=== PATIENT | female | born 1990 | race Caucasian/White ===

== ENCOUNTER → 2020-03-14 15:25 | Outpatient (BNVA) | payer MEDICAID, SELFPAY | PROVIDERS: Family Provider Family Medicine; PCP Family Medicine; Visit Provider Nurse Practitioner Women's Health | DX: Z11.3 Encounter for screening for infections with a predominantly sexual mode of transmission (principal); Z12.4 Encounter for screening for malignant neoplasm of cervix | CPT/HCPCS: 86592; 86803; 87340; 87491; 87591; 87661; 87806; 88175 ==

== ENCOUNTER → 2020-03-30 09:17 | Outpatient (BNVA) | payer MEDICAID, SELFPAY | PROVIDERS: Family Provider Family Medicine; PCP Family Medicine; Visit Provider Nurse Practitioner Women's Health | DX: Z30.017 Encounter for initial prescription of implantable subdermal contraceptive (principal) | CPT/HCPCS: 81025 ==

== ENCOUNTER 2021-04-16 21:59 | Inpatient (IN) | payer MEDICAID, SELFPAY ==
--- NOTE | 2021-04-16 22:10 | XRR_ITS ---
PROCEDURE INFORMATION: Exam: XR Chest Exam date and time: 04/16/2021 10:10 PM Age: 30 years old Clinical indication: Cough and fever and shortness of breath; Additional info: Cough, covid concern TECHNIQUE: Imaging protocol: XR of the chest. Views: 1 view. COMPARISON: CR Chest 2 views* [id number] 07/10/2017 7:49 PM FINDINGS: Lungs: There may be some minimal focal infiltrate or atelectasis at the left lung base. Pleural spaces: Unremarkable. No pleural effusion. No pneumothorax. Heart/Mediastinum: Heart is within normal limits of size. Bones/joints: There is a small right cervical rib. Soft tissues: There is abnormal soft tissue density in the right apical region. Anterior right 1st and 2nd ribs not well seen on this study. Findings are worrisome for chest wall abnormality or mass. XR/XR chest 1V portable [id number] IMPRESSION: 1. Question of right chest wall abnormality. Further evaluation with CT scanning is suggested. 2. Question of minimal left basilar infiltrate. Radiation Dose CTDIVOL = (mGy): DLP = (mGy-cm)
[2021-04-16 22:15] VITALS: PULSE 190; RESP 20; TEMP 37.9; BMI 31.1
--- NOTE | 2021-04-16 22:15 | ECG_ITS ---
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 Measurements Intervals [place] Rate: 136 P: 67 MD: 147 QRS: 43 QRSD: 78 T: 57 QT: 296 QTc: 446 Interpretive Statements SINUS TACHYCARDIA MINIMAL ST DEPRESSION [0.025+ mV ST DEPRESSION] ABNORMAL RHYTHM ECG Compared to ECG 07/10/2017 19:03:17 ST (T wave) deviation now present Electronically Signed On 04-17-2021 20:40:24 DIRECTOR OF RETAIL MERCHANDISING by Camila Wood M.D. [id number]
[2021-04-16 22:19] VITALS: BP 110/78
--- NOTE | 2021-04-16 22:20 | W.ED.SOB ---
HPI - SOB/Dyspnea General: Chief Complaint: Chest Pain Stated Complaint: Covid Symptoms Time Seen by Provider: 04/16/21 22:11 Source: patient Mode of arrival: ambulatory Limitations: no limitations History of Present Illness: HPI Narrative: 30-year-old female states she has been having cough congestion fever over the last week. States that her son was diagnosed with Covid and she has had a negative Covid believe she likely has Covid. She has had some dyspnea oxygen here is 97% states she had palpitations tonight heart rate was in the 160s A. fib with RVR she has no history of any A. fib. Associated symptoms: Reports fever(s) and palpitations; Deny abdominal pain, nausea or vomiting Review of Systems Const: Reports: fever(s) and chills Eyes: Denies: blurry vision or eye discomfort ENMT: Denies: throat pain or dental pain Card: Reports: palpitations Resp: Reports: dyspnea and non-productive cough GI: Denies: abdominal pain, nausea, vomiting or diarrhea : Denies: dysuria Musc: Denies: neck pain or back pain Skin/Breast: Denies: rash Neuro: Denies: headache(s) Psych: Denies: depression [place]/Lymph: Denies: easy bruising All/Imm: Denies: urticaria PFSH ED PFSH: Medical History (Updated 04/16/21 @ 23:59 by Ashley Resendez MD) No pertinent past medical history neghx: htn,dm,thyroid,dvt/pe PCOS (polycystic ovarian syndrome) Surgical History H/O oral surgery History of cholecystectomy Hx of section (05/24/14) Perfomed per Dr. Perez Hx of dilation and curettage (~2012) Family History Grandfather Diabetes Paternal and maternal Heart disease Maternal Grandmother Diabetes Paternal Hypertension Maternal Denies family history of Colon cancer Ovarian cancer Clotting disorder Hypercholesteremia Breast cancer Bleeding disorder Uterine cancer Thyroid disease Stroke Physical Exam Const: COMMON NORMALS: no acute distress, patient oriented x3 and healthy appearing HENMT: COMMON NORMALS: normocephalic and atraumatic HEAD & SCALP: normocephalic and atraumatic Eye: COMMON NORMALS: Equal, round and reactive pupils present and EOMs intact bilaterally PUPIL: Yes Equal, round and reactive pupils present Neck/C-Spine: COMMON NORMALS: full ROM and supple Chest: COMMONS NORMALS: normal inspection of the chest and normal palpation of entire chest wall Resp: COMMON NORMALS: normal respiratory effort, No retractions, No use of accessory muscles and clear to auscultation bilaterally AUSCULTATION: clear to auscultation bilaterally Cardio: COMMON NORMALS: No murmurs present (Cardio) RATE: tachycardic RHYTHM: abnormal rhythm irregularly irregular GI: COMMON NORMALS: Normal to inspection, nondistended, normoactive bowel sounds present, Soft to palpation, non-tender and no masses PALPATION: Yes Soft to palpation Extremity: COMMON NORMALS: normal to inspection and full ROM Neuro: COMMON NORMALS: patient oriented x3, moves all extremities and no focal motor deficits Psych: COMMON NORMALS: mental status grossly normal, Normal thought process present and cooperative THOUGHT PROCESS: Normal thought process present Skin: COMMON NORMALS: no rashes or lesions noted and no wounds GENERAL SKIN EXAM: no rashes or lesions noted Course Vital Signs: Vital signs: Vital Signs Temperature 100.2 F H 04/16/21 22:15 Pulse Rate 166 H 04/16/21 22:26 Respiratory Rate 19 H 04/16/21 22:26 Blood Pressure 115/80 04/16/21 22:26 Pulse Oximetry 97 04/16/21 22:26 MDM - SOB/Dyspnea MDM Narrative: Medical decision making narrative: Patient presents here with pneumonia along with sepsis her heart rate is improving here patient started on IV antibiotics patient's been in no distress here she has no signs of pulmonary embolism I spoke to hospitalist will admit at this time. Lab Data: Labs: Lab Results 04/16/21 04/16/21 04/16/21 20:20 22:20 22:20 WBC 24.0 10^3/uL H 10 ^3/uL (4.0-10.0) RBC 4.57 10^6/uL 10^6 /uL (4.1-5.3) Hgb 13.4 g/dL g/dL (11.5-15.3) Hct 40.6 % % (37.0-47.0) MCV 88.8 fl fl (81-99) MCH 29.3 pg pg (28.0-34.0) MCHC 33.0 g/dL g/dL (30.0-36.0) RDW 12.8 % % (12.1-15.1) Plt Count 212 10^3/cmm 10^3 /cmm (130-400) MPV 12.4 fL H fL (7.4-10.4) Lymph % (Auto) Not Reportable [place] % (Auto) Not Reportable Lymph # (Auto) Not Reportable [place] # (Auto) Not Reportable Total Counted 100 (0-100) Atypical Lymphs % 1.0 % % (0-5) Absolute Neutrophi ls 21.1 10^3/cmm H 1 0^3/cmm (1.4-6.5) Segmented Neutroph ils 65 % % Abs Segm Neuts (Ma n) 15.6 10/cmm H 10/ cmm (1.6-7.1) Band Neutrophils 23.0 % % Abs Band Neuts (Ma n) 5.5 10^3/cmm H 10 ^3/cmm (0.0-1.2) Absolute Lymphocyt es 1.2 10^3/cmm 10^3 /cmm (1.2-3.4) Lymphocytes (Manua l) 4 % % Monocytes (Manual) 7.0 % % Absolute Monocytes 1.7 10^3/cmm H 10 ^3/cmm (0.1-0.6) Eosinophils (Manua l) 0 % % Absolute Eosinophi ls 0.0 10^3/cmm 10^3 /cmm (0.0-0.7) Basophils (Manual) 0.0 % % Absolute Basophils 0.0 10^3/cmm 10^3 /cmm (0.0-0.2) Platelet Estimate Normal (Normal) D-Dimer 3.25 ug/mIFEU H u g/mIFEU (0-0.59) Sodium Potassium Chloride Carbon Dioxide Anion Gap BUN Creatinine GFR Calculation Glucose Calculated Osmolal ity Lactic Acid Calcium Total Bilirubin AST ALT Alkaline Phosphata se NT-Pro-B Natriuret Pep Total Protein Albumin Globulin HCG, Qual Negative (Negative) SARS-CoV-2 Ag (Rap id) 04/16/21 04/16/21 04/16/21 22:20 22:20 22:30 WBC RBC Hgb Hct MCV MCH MCHC RDW Plt Count MPV Lymph % (Auto) [place] % (Auto) Lymph # (Auto) [place] # (Auto) Total Counted Atypical Lymphs % Absolute Neutrophi ls Segmented Neutroph ils Abs Segm Neuts (Ma n) Band Neutrophils Abs Band Neuts (Ma n) Absolute Lymphocyt es Lymphocytes (Manua l) Monocytes (Manual) Absolute Monocytes Eosinophils (Manua l) Absolute Eosinophi ls Basophils (Manual) Absolute Basophils Platelet Estimate D-Dimer Sodium 133 mmol/L L mmol /L (136-145) Potassium 2.9 mmol/L L mmol /L (3.5-5.1) Chloride 96 mmol/L L mmol/ L (98-107) Carbon Dioxide 19 mmol/L L mmol/ L (22-29) Anion Gap 20.9 H (5-19) BUN 14 mg/dL mg/dL (6-20) Creatinine 1.6 mg/dL H mg/dL (0.5-0.9) GFR Calculation 37.6 mL/min L mL/ min (90-130) Glucose 110 mg/dL mg/dL (65-115) Calculated Osmolal ity 277 mOsm/kg L mOs m/kg (285-295) Lactic Acid 2.8 mmol/L H mmol /L (0.5-2.2) Calcium 9.3 mg/dL mg/dL (8.5-10.5) Total Bilirubin 0.8 mg/dL mg/dL (0.15-1.2) AST 16 U/L U/L (0-32) ALT 23 U/L U/L (0-33) Alkaline Phosphata se 131 IU/L H IU/L (35-105) NT-Pro-B Natriuret Pep 448 pg/mL H pg/mL (0-125) Total Protein 8.3 g/dL g/dL (6.6-8.7) Albumin 3.6 g/dL g/dL (3.5-5.2) Globulin 4.7 g/dL H g/dL (1.3-4.6) HCG, Qual SARS-CoV-2 Ag (Rap id) Negative (Negative) Imaging Data^: CT Chest: Radiologist's impression: [address] [address] [address] Scan Report Signed Patient: Kerrie Ibrahim Unit #: [id number] : 1990 Age/Sex: 30 / F ADM Date: 04/16/21 Loc: ER Room/Bed: Attending Dr: Ordering Provider/Ordering MD: Ashley Resendez MD Date of Service: 04/16/21 Procedure(s): CT angio chest PE protcl [id number] Accession Number(s): [id number] Report Number: [id number] PROCEDURE INFORMATION: Exam: CTA Chest With Contrast Exam date and time: 04/16/2021 10:51 PM Age: 30 years old Clinical indication: Patient HX: RT sided chest wall pain with cough and dyspnea. Tachycardic with hr of 160+. Exam repeated. Best scan submitted due to patient's heart rate. ; Additional info: SOB TECHNIQUE: Imaging protocol: Computed tomographic angiography of the chest with contrast. 3D rendering (Not supervised by radiologist): MIP and/or 3D reconstructed images were created by the technologist. Radiation optimization: All CT scans at this facility use at least one of these dose optimization techniques: automated exposure control; mA and/or kV adjustment per patient size (includes targeted exams where dose is matched to clinical indication); or iterative reconstruction. Contrast material: VISI 320; Contrast volume: 107 ml; Contrast route: INTRAVENOUS (IV); COMPARISON: CR (CHEST, ) 04/16/2021 10:26 PM RADIATION DOSE METRICS: Total DLP (mGy-cm): 1102.28 FINDINGS: Pulmonary arteries: There is no evidence of filling defects within the pulmonary arterial circulation to suggest pulmonary embolism. Aorta: There is no thoracic aortic aneurysm or dissection. Lungs: There is right upper lobe consolidation involving mostly the posterior segment. There is also some patchy nodular tree-in-bud type infiltrate in the other segments of the right lung with 1 cm sized nodule superior segment right lower lobe, likely related to inflammatory disease. There also some mild areas of tree-in-bud type infiltrate in the left lower lobe and lingula. These findings are atypical for COVID-19 infection. Pleural spaces: Unremarkable. No pneumothorax. No pleural effusion. Heart: Unremarkable. No cardiomegaly. No pericardial effusion. Lymph nodes: There is no evidence of lymphadenopathy. Bones/joints: There is mild scoliosis of the thoracic spine concave to the right. Soft tissues: Unremarkable. CT/CT angio chest PE protcl [id number] IMPRESSION: 1. Multifocal pneumonia but mostly lobar pneumonia involving the posterior segment of the right upper lobe. 2. Imaging features are atypical or uncommonly reported for COVID-19 pneumonia. Alternative diagnoses should be considered. (Reference: Rk) REFERENCES: Rk Mcintosh, et al., Radiological Society of [place] Expert Consensus Statement on Reporting Chest CT Findings Related to COVID-19. Endorsed by the Society of Thoracic Radiology, the [employer], and RSNA. Published August 31, 2019. Radiation Dose CTDIVOL = (mGy): DLP = 1102.28 (mGy-cm) Dictated By: Benjamin Oliveros Signed By: Benjamin Oliveros Signed Date/Time: 04/16/211 DD/ EKG Data^: EKG 1: Attestation: I personally reviewed and interpreted this EKG as follows: EKG Interpretation Date: 04/16/21 EKG interpretation time: 22:08 Interpretation: afib hr [address] or t wave abnormalities qrs 70 qtc 364 EKG 2: Attestation: I personally reviewed and interpreted this EKG as follows: EKG Interpretation Date: 04/16/21 EKG interpretation time: 23:36 Interpretation: sinus tach hr [address] elevation qrs 78 qtc 376 Discharge Plan Discharge Patient Disposition: Admitted As Inpatient Clinical Impression: Sepsis Pneumonia Qualifiers: Pneumonia type: due to unspecified organism Laterality: right Lung location: upper lobe of lung Qualified Code(s): J18.9 - Pneumonia, unspecified organism Condition: Stable Coding Level of Care Code ED Rehabilitation Director for Chg Fwd Exam Comprehensive
[2021-04-16] MEDS: sodium chloride 0.9% 1,000 ML 999 ML IV ×2 (22:24→22:45)
[2021-04-16] MEDS: acetaminophen 500 mg Tablet 1000 MG PO (22:25)
[2021-04-16 22:26] VITALS: BP 115/80; PULSE 166; RESP 19; O2SAT 97
[2021-04-16 22:29] LABS: Hematocrit 40.6 % (37.0-47.0); Hemoglobin 13.4 g/dL (11.5-15.3); Mean Corpuscular Hemoglobin 29.3 pg (28.0-34.0); Mean Corpuscular Volume 88.8 fl (81-99); Mean Platelet Volume 12.4 fL (7.4-10.4); Platelet Count 212 10^3/cmm (130-400); Red Blood Count 4.57 10^6/uL (4.1-5.3); Red Cell Distribution Width 12.8 % (12.1-15.1)
[2021-04-16] MEDS: cefTRIAXone 1,000 MG in sodium chloride 0.9% (plus) 50 ML 100 MG IV (22:45)
[2021-04-16 22:47] LABS: Lactic Sepsis W/Reflex 2.8 mmol/L (0.5-2.2)
[2021-04-16] MEDS: azithromycin 500 MG in sodium chloride 0.9% 250 ML 250 MG IV (22:48)
[2021-04-16 22:51] LABS: D Dimer 3.25 ug/mIFEU (0-0.59)
--- NOTE | 2021-04-16 22:51 | CTR_ITS ---
PROCEDURE INFORMATION: Exam: CTA Chest With Contrast Exam date and time: 04/16/2021 10:51 PM Age: 30 years old Clinical indication: Patient HX: RT sided chest wall pain with cough and dyspnea. Tachycardic with hr of 160+. Exam repeated. Best scan submitted due to patient's heart rate. ; Additional info: SOB TECHNIQUE: Imaging protocol: Computed tomographic angiography of the chest with contrast. 3D rendering (Not supervised by radiologist): MIP and/or 3D reconstructed images were created by the technologist. Radiation optimization: All CT scans at this facility use at least one of these dose optimization techniques: automated exposure control; mA and/or kV adjustment per patient size (includes targeted exams where dose is matched to clinical indication); or iterative reconstruction. Contrast material: VISI 320; Contrast volume: 107 ml; Contrast route: INTRAVENOUS (IV); COMPARISON: CR (CHEST, ) 04/16/2021 10:26 PM RADIATION DOSE METRICS: Total DLP (mGy-cm): 1102.28 FINDINGS: Pulmonary arteries: There is no evidence of filling defects within the pulmonary arterial circulation to suggest pulmonary embolism. Aorta: There is no thoracic aortic aneurysm or dissection. Lungs: There is right upper lobe consolidation involving mostly the posterior segment. There is also some patchy nodular tree-in-bud type infiltrate in the other segments of the right lung with 1 cm sized nodule superior segment right lower lobe, likely related to inflammatory disease. There also some mild areas of tree-in-bud type infiltrate in the left lower lobe and lingula. These findings are atypical for COVID-19 infection. Pleural spaces: Unremarkable. No pneumothorax. No pleural effusion. Heart: Unremarkable. No cardiomegaly. No pericardial effusion. Lymph nodes: There is no evidence of lymphadenopathy. Bones/joints: There is mild scoliosis of the thoracic spine concave to the right. Soft tissues: Unremarkable. CT/CT angio chest PE protcl [id number] IMPRESSION: 1. Multifocal pneumonia but mostly lobar pneumonia involving the posterior segment of the right upper lobe. 2. Imaging features are atypical or uncommonly reported for COVID-19 pneumonia. Alternative diagnoses should be considered. (Reference: Rk) REFERENCES: Rk Mcintosh et al., Radiological Society of [place] Expert Consensus Statement on Reporting Chest CT Findings Related to COVID-19. Endorsed by the Society of Thoracic Radiology, the [place] [employer], and RSNA. Published August 31, 2019. Radiation Dose CTDIVOL = (mGy): DLP = 1102.28 (mGy-cm)
[2021-04-16 22:57] LABS: Alanine Aminotransferase 23 U/L (0-33); Albumin Level 3.6 g/dL (3.5-5.2); Alkaline Phosphatase 131 IU/L (35-105); Anion Gap 20.9 (5-19); Aspartate Amino Transferase 16 U/L (0-32); Blood Urea Nitrogen 14 mg/dL (6-20); Calcium 9.3 mg/dL (8.5-10.5); Carbon Dioxide 19 mmol/L (22-29); Chloride 96 mmol/L (98-107); Globulin 4.7 g/dL (1.3-4.6); Glomerular Filtration Rate 37.6 mL/min (90-130); Glucose 110 mg/dL (65-115); NT Pro B Type Natriuretic Pept 448 pg/mL (0-125); Osmolality Calculated 277 mOsm/kg (285-295); Sodium 133 mmol/L (136-145); Total Bilirubin 0.8 mg/dL (0.15-1.2); Total Protein 8.3 g/dL (6.6-8.7)
[2021-04-16] MEDS: sodium chloride 0.9% 500 ML 999 ML IV (22:59)
[2021-04-16 23:02] LABS: HCG, Serum Qual Negative (Negative)
[2021-04-16 23:05] VITALS: PULSE 135; RESP 12; O2SAT 98
[2021-04-16 23:05] LABS: Potassium 2.9 mmol/L (3.5-5.1)
[2021-04-16] MEDS: ondansetron 2 mg/ML SDV 2 mL 4 MG IVP (23:05)
[2021-04-16] MEDS: iodixanol 320 mg/mL 100mL Btl IV ×2 (23:22)
[2021-04-16] MEDS: potassium chloride ER 20 mEq Tablet 40 MEQ PO (23:29)
[2021-04-16 23:30] LABS: SARS Covid-2 Antigen Negative (Negative)
[2021-04-16 23:41] LABS: Absolute Neutrophil 21.1 10^3/cmm (1.4-6.5); Absolute Segmented Neutrophil 15.6 10/cmm (1.6-7.1); Band Neutrophils Absolute 5.5 10^3/cmm (0.0-1.2); Eosinophils 0 %; Lymphocytes 4 %; Lymphocytes Absolute 1.2 10^3/cmm (1.2-3.4); Monocytes Absolute 1.7 10^3/cmm (0.1-0.6); Platelet Estimate Normal (Normal); Segmented Neutrophils 65 %; Slide Review Slide Review Perform; Total Cells Counted 100 (0-100)
--- NOTE | 2021-04-16 23:58 | P.HP_ITS ---
Providers/Chief Complaint Primary Care Provider: Kennedy Israel MD Chief Complaint: Covid Symptoms History of Present Illness Kerrie Ibrahim is a 30 year old female coming with shortness of breath, cough, fever. The patient reports that her symptoms started several days ago. Initially mild they progressively got worse. Currently she describes her symptoms as moderate intensity the cough is dry. Reports fever. She reports th at her son was recently diagnosed with Covid. She denies runny nose or sore throat. She reports right-sided chest pain. No nausea or vomiting. No diarrhea. Denies abdominal pain or dysuria. In emergency room patient was found to have heart rate of 166. She was given a bolus of fluids and diltiazem. Currently her heart rate is in 06/28/1929 range. She denies palpitations. No dizziness or lightheadedness. Review of Systems General: Reports: 10 or more systems reviewed and unremarkable except in HPI and below Medications/Allergies Home Medications Medication Instructions Recorded Confirmed Last Taken Type Control 04/16/21 Unknown History Allergies Allergy/AdvReac Type Severity Reaction Status Date / Time No Known Allergies Allergy Verified 04/16/21 22:21 PFSH Acute PFSH: Medical History (Updated 04/17/21 @ 00:21 by Charles Sprague) No pertinent past medical history neghx: htn,dm,thyroid,dvt/pe PCOS (polycystic ovarian syndrome) Surgical History H/O oral surgery History of cholecystectomy Hx of section (05/24/14) Perfomed per Dr. Perez Hx of dilation and curettage (~2012) Family History Grandfather Diabetes Paternal and maternal Heart disease Maternal Grandmother Diabetes Paternal Hypertension Maternal Denies family history of Colon cancer Ovarian cancer Clotting disorder Hypercholesteremia Breast cancer Bleeding disorder Uterine cancer Thyroid disease Stroke Female Reproductive History: Date of last menstrual period: 04/07/21 Vitals/I&O/Wt Last Vital Signs Temp 100.2 F H 04/16/21 22:15 Pulse 166 H 04/16/21 22:26 Resp 19 H 04/16/21 22:26 BP 115/80 04/16/21 22:26 Pulse Ox 97 04/16/21 22:26 04/16/21 04/16/21 04/17/21 14:59 22:59 06:59 Intake Total 1050 / 1050 Balance 1050 / 1050 Weight last 48 hrs Weight 77.111 kg Physical Exam Narrative: EXAM NARRATIVE: The patient is awake alert oriented. No acute distress. Mood and affect are appropriate. Responses are adequate. Skin is warm and dry. Dry mucous membranes Eyes PERRL, extraocular muscles are intact Neck supple. No JVD Lungs right-sided coarse breath sounds and rhonchi are auscultated. No wheezes. No respiratory distress at rest. Heart S1, S2, regular tachycardia Abdomen soft, nontender, bowel sounds are present Extremities no edema cyanosis or calf tenderness bilaterally Neuro evaluation is normal Data : 04/16/21 22:20 04/16/21 22:20 Other Labs: Laboratory Results WBC 24.0 10^3/uL (4.0-10.0) H 04/16/21 22:20 RBC 4.57 10^6/uL (4.1-5.3) 04/16/21 22:20 Hgb 13.4 g/dL (11.5-15.3) 04/16/21 22:20 Hct 40.6 % (37.0-47.0) 04/16/21 22:20 MCV 88.8 fl (81-99) 04/16/21 22:20 MCH 29.3 pg (28.0-34.0) 04/16/21 22:20 MCHC 33.0 g/dL (30.0-36.0) 04/16/21 22:20 RDW 12.8 % (12.1-15.1) 04/16/21 22:20 Plt Count 212 10^3/cmm (130-400) 04/16/21 22:20 MPV 12.4 fL (7.4-10.4) H 04/16/21 22:20 Lymph % (Auto) Not Reportable 04/16/21 22:20 [place] % (Auto) Not Reportable 04/16/21 22:20 Lymph # (Auto) Not Reportable 04/16/21 22:20 [place] # (Auto) Not Reportable 04/16/21 22:20 Total Counted 100 (0-100) 04/16/21 22:20 Atypical Lymphs % 1.0 % (0-5) 04/16/21 22:20 Absolute Neutrophils 21.1 10^3/cmm (1.4-6.5) H 04/16/21 22:20 Segmented Neutrophils 65 % 04/16/21 22:20 Abs Segm Neuts (Man) 15.6 10/cmm (1.6-7.1) H 04/16/21 22:20 Band Neutrophils 23.0 % 04/16/21 22:20 Abs Band Neuts (Man) 5.5 10^3/cmm (0.0-1.2) H 04/16/21 22:20 Absolute Lymphocytes 1.2 10^3/cmm (1.2-3.4) 04/16/21 22:20 Lymphocytes (Manual) 4 % 04/16/21 22:20 Monocytes (Manual) 7.0 % 04/16/21 22:20 Absolute Monocytes 1.7 10^3/cmm (0.1-0.6) H 04/16/21 22:20 Eosinophils (Manual) 0 % 04/16/21 22:20 Absolute Eosinophils 0.0 10^3/cmm (0.0-0.7) 04/16/21 22:20 Basophils (Manual) 0.0 % 04/16/21 22: Absolute Basophils 0.0 10^3/cmm (0.0-0.2) 04/16/21 22:20 Platelet Estimate Normal (Normal) 04/16/21 22:20 D-Dimer 3.25 ug/mIFEU (0-0.59) H 04/16/21 22:20 Sodium 133 mmol/L (136-145) L 04/16/21 22:20 Potassium 2.9 mmol/L (3.5-5.1) L 04/16/21 22:20 Chloride 96 mmol/L (98-107) L 04/16/21 22:20 Carbon Dioxide 19 mmol/L (22-29) L 04/16/21 22:20 Anion Gap 20.9 (5-19) H 04/16/21 22:20 BUN 14 mg/dL (6-20) 04/16/21 22:20 Creatinine 1.6 mg/dL (0.5-0.9) H 04/16/21 22:20 GFR Calculation 37.6 mL/min (90-130) L 04/16/21 22:20 Glucose 110 mg/dL (65-115) 04/16/21 22:20 Calculated Osmolality 277 mOsm/kg (285-295) L 04/16/21 22:20 Lactic Acid 2.8 mmol/L (0.5-2.2) H 04/16/21 22:20 Calcium 9.3 mg/dL (8.5-10.5) 04/16/21 22:20 Total Bilirubin 0.8 mg/dL (0.15-1.2) 04/16/21 22:20 AST 16 U/L (0-32) 04/16/21 22:20 ALT 23 U/L (0-33) 04/16/21 22:20 Alkaline Phosphatase 131 IU/L (35-105) H 04/16/21 22:20 NT-Pro-B Natriuret Pep 448 pg/mL (0-125) H 04/16/21 22:20 Total Protein 8.3 g/dL (6.6-8.7) 04/16/21 22:20 Albumin 3.6 g/dL (3.5-5.2) 04/16/21 22:20 Globulin 4.7 g/dL (1.3-4.6) H 04/16/21 22:20 HCG, Qual Negative (Negative) 04/16/21 20:20 SARS-CoV-2 Ag (Rapid) Negative (Negative) 04/16/21 22:30 Impressions Chest X-Ray 04/16/21 22:10 IMPRESSION: 1. Question of right chest wall abnormality. Further evaluation with CT scanning is suggested. 2. Question of minimal left basilar infiltrate. Radiation Dose CTDIVOL = (mGy): DLP = (mGy-cm) Chest CTA 04/16/21 22:51 IMPRESSION: 1. Multifocal pneumonia but mostly lobar pneumonia involving the posterior segment of the right upper lobe. 2. Imaging features are atypical or uncommonly reported for COVID-19 pneumonia. Alternative diagnoses should be considered. (Reference: Rk) REFERENCES: Rk Mcintosh et al., Radiological Society of [place] Expert Consensus Statement on Reporting Chest CT Findings Related to COVID-19. Endorsed by the Society of Thoracic Radiology, the [place] [employer], and RSNA. Published August 31, 2019. Radiation Dose CTDIVOL = (mGy): DLP = 1102.28 (mGy-cm) Micro: Microbiology 04/16/21 22:33 Blood Culture - Preliminary Blood SPECIMEN COLLECTED 04/16/21 22:30 Blood Culture - Preliminary Blood SPECIMEN COLLECTED A&P Assessment and plan (1) Severe sepsis: Status: Acute (2) Pneumonia: Status: Acute Qualifiers: Laterality: right Lung location: upper lobe of lung Pneumonia type: due to unspecified organism Qualified Code(s): J18.9 - Pneumonia, unspecified organism (3) Hypokalemia: Status: Acute (4) Tachycardia: Status: Acute (5) Acute kidney injury: Status: Acute Additional A&P Information 30-year-old female with past medical history of asthma, recent exposure to Covid 19 presents with right-sided pneumonia. Has associated severe sepsis with acute kidney injury, dehydration. She also has hypokalemia and mild hyponatremia. Due to strong suspicion for Covid we will put her on isolation and recheck Covid test. For now we will start her on Rocephin and doxycycline. We will monitor her CBC, CRP, procalcitonin. We will hydrate her and recheck her chemistry panel in the morning. She received potassium in the emergency room. I will give her magnesium. Currently she is eating sinus tachycardia. EKG is ordered. Improved with IV fluids. We will continue monitoring. DVT prophylaxis. Lovenox. The plan of care was discussed with the patient. She verbalized understanding and agreement Attestations Medical Necessity Statement*: Based on my assessment of patient's presenting findings and diagnosis I expect that the patient will need to spend more than 2 midnights in the hospital to complete the course of inpatient treatment. Coding Level of Care Code Acute Brake [employer] for [facility] Fwd Diagnoses Severe sepsis A41.9; R65.20 Pneumonia J18.9 Laterality: right Lung location: upper lobe of lung Pneumonia type: due to unspecified organism Hypokalemia E87.6 Tachycardia R00.0 Acute kidney injury N17.9
[2021-04-17] VITALS (37 sets, daily range): BP systolic 86–130; BP diastolic 54–80; PULSE 110–140; RESP 11–25; TEMP 36.2–38.9; O2SAT 81–100
[2021-04-17 00:15] LABS: Reflex Lactate Order REFLEX LACTIC ORDERD
[2021-04-17 00:49] LABS: Lactic Acid level (Lactate) 2.3 mmol/L (0.5-2.2); Specific Gravity, Urine 1.005 (1.005-1.030); Urine Appearance Hazy (CLEAR); Urine Color Yellow (Yellow); pH Urine 5 (5-7)
[2021-04-17 00:50] LABS: Add Urine Microscopic? YES; Bilirubin Urine Neg (Negative); Blood Urine 3+ (Negative); Glucose Urine UA Norm (Normal); Ketones Urine Negative (Negative); Leukocyte Esterase Urine Negative (Negative); Nitrate Urine Negative (Negative); Protein Urine Neg (Negative); Urobilinogen Urine Norm (Negative)
[2021-04-17 00:52] LABS: WBC Urine 0-4 /hpf (0-5)
[2021-04-17 00:53] LABS: Add Urine Culture? No; Amorphous Sediment Urine 2+ /hpf; Bacteria Urine TRACE /hpf
[2021-04-17] MEDS: sodium chloride 0.9% 1,000 ML 999 ML IV (00:54)
--- NOTE | 2021-04-17 01:34 | PC.NURSE ---
pt changed from med/surg to [facility] bed. called to give report and Todd states that this patients nurse is in another patients room and she will call back to receive report.
--- NOTE | 2021-04-17 01:50 | PC.NURSE ---
report called to jb NUNEZ
[2021-04-17] MEDS: lactated ringers 1,000 ML 100 ML IV (02:10)
[2021-04-17] MEDS: enoxaparin 40 mg/0.4 mL Syringe SUBCUT (02:10)
--- NOTE | 2021-04-17 02:43 | PC.NURSE ---
Patient arrived to the floor from the ED after report was received via phone. Patient is alert and oriented. Patient does not c/o any pain and is not in any distress. Oxygen saturation 92 percent on room air, patient is in ST 120s. Patient has been oriented to her room and has call light within reach. Frequent safety and comfort rounds continue. Orders and/or nursing care completed as indicated. Patient monitored for response to intervention and treatment(s). Will continue to monitor.
[2021-04-17 04:37] LABS: Procalcitonin 5.38 ng/mL (0-0.5)
[2021-04-17 04:40] LABS: Lactic Sepsis W/Reflex 1.4 mmol/L (0.5-2.2); NT Pro B Type Natriuretic Pept 1108 pg/mL (0-125)
[2021-04-17 04:41] LABS: Alanine Aminotransferase 17 U/L (0-33); Albumin Level 2.8 g/dL (3.5-5.2); Alkaline Phosphatase 98 IU/L (35-105); Anion Gap 16.6 (5-19); Aspartate Amino Transferase 14 U/L (0-32); Blood Urea Nitrogen 14 mg/dL (6-20); Calcium 7.5 mg/dL (8.5-10.5); Carbon Dioxide 17 mmol/L (22-29); Chloride 109 mmol/L (98-107); Globulin 3.3 g/dL (1.3-4.6); Glomerular Filtration Rate 52.4 mL/min (90-130); Glucose 102 mg/dL (65-115); Magnesium 2.1 mg/dL (1.7-2.3); Osmolality Calculated 289 mOsm/kg (285-295); Potassium 3.6 mmol/L (3.5-5.1); Sodium 139 mmol/L (136-145); Total Bilirubin 0.5 mg/dL (0.15-1.2); Total Protein 6.1 g/dL (6.6-8.7)
--- NOTE | 2021-04-17 04:54 | PC.NURSE ---
Patient's oxygen saturation ranging 87-88 percent. Patient placed on 2 L NC and oxygen saturation now 93 percent. Will continue to monitor.
[2021-04-17] MEDS: benzonatate 100 mg Capsule PO (04:55)
[2021-04-17] MEDS: acetaminophen 325 mg Tablet 650 MG PO ×3 (07:49→20:49)
[2021-04-17] MEDS: cefTRIAXone 1,000 MG in sodium chloride 0.9% (plus) 50 ML 100 MG IV (08:55)
[2021-04-17] MEDS: doxycycline 100 mg Tablet PO ×2 (08:55→17:37)
--- NOTE | 2021-04-17 09:33 | PM.PN ---
Subjective Subjective: Interval history: Patient was seen and examined this morning, continued to have worsening cough, continued to be tachycardic, continued to have fever. T-max:102. Medications: Reviewed: Yes Vitals/I&O/Wt Last Vital Signs Temp 102.0 F H 04/17/21 09:02 Pulse 140 H 04/17/21 08:00 Resp 18 04/17/21 08:00 BP 120/72 04/17/21 08:00 Pulse Ox 100 04/17/21 08:00 04/16/21 04/17/21 04/17/21 22:59 06:59 14:59 Intake Total 1050 / 1050 3002 / 4052 Balance 1050 / 1050 3002 / 4052 Weight last 48 hrs Weight 82.645 kg Weight 77.111 kg Physical Exam Const: COMMON NORMALS: patient oriented x3 HENMT: COMMON NORMALS: normocephalic and atraumatic HEAD & SCALP: normocephalic and atraumatic Resp: EFFORT & INSPECTION: Yes symmetric chest movement OTHER: Diminished air entry right lung base. Rest clear, no wheezing no rhonchi Cardio: COMMON NORMALS: regular rate, regular rhythm, S1 normal heart sound present, S2 normal heart sound present, No gallops present (Cardio), No murmurs present (Cardio), No rub (Cardio) and Peripheral pulses 2+ throughout RATE: regular rate RHYTHM: regular rhythm HEART SOUNDS: S1 normal heart sound present and S2 normal heart sound present PERIPHERAL PULSES: Peripheral pulses 2+ throughout GI: COMMON NORMALS: Normal to inspection, nondistended, normoactive bowel sounds present, Soft to palpation, non-tender, No hepatosplenomegaly present and no masses AUSCULTATION: Yes normoactive bowel sounds PALPATION: Yes Soft to palpation and Yes No hepatosplenomegaly present RECTAL EXAM: deferred Extremity: COMMON NORMALS: no clubbing, cyanosis or edema and no pedal edema Neuro: COMMON NORMALS: patient oriented x3 Data : 04/16/21 22:20 04/17/21 03:40 Micro: Microbiology 04/16/21 22:33 Blood Culture - Preliminary Blood SPECIMEN COLLECTED 04/16/21 22:30 Blood Culture - Preliminary Blood SPECIMEN COLLECTED A&P Assessment and plan (1) Pneumonia: Community-acquired pneumonia: Blood cultures: Sputum culture Urine cultures Urine Legionella antigen Urine bacterial antigen panel MRSA PCR Monitor x-ray chest Vancomycin Zosyn Supplemental oxygen as needed Status: Acute Qualifiers: Laterality: right Lung location: upper lobe of lung Pneumonia type: due to unspecified organism Qualified Code(s): J18.9 - Pneumonia, unspecified organism (2) Severe sepsis: Sepsis secondary to pneumonia Status: Acute (3) Hypokalemia: Status: Acute (4) Tachycardia: Status: Acute (5) Acute kidney injury: Status: Acute Additional A&P Information 30-year-old female with past medical history of asthma, recent exposure to Covid 19 presents with right-sided pneumonia. Has associated severe sepsis with acute kidney injury, dehydration. She also has hypokalemia and mild hyponatremia. Due to strong suspicion for Covid we will put her on isolation and recheck Covid test. For now we will start her on Rocephin and doxycycline. We will monitor her CBC, CRP, procalcitonin. We will hydrate her and recheck her chemistry panel in the morning. She received potassium in the emergency room. I will give her magnesium. Currently she is having sinus tachycardia. Improved with IV fluids. We will continue monitoring. DVT prophylaxis. Lovenox. CODE STATUS: Full code Attestations Medical Necessity Statement*: Patient is to be in hospital for management of pneumonia. Coding Level of Care Code Acute Customer Care Voice Consultant for [facility] Diagnoses Pneumonia J18.9 Laterality: right Lung location: upper lobe of lung Pneumonia type: due to unspecified organism Severe sepsis A41.9; R65.20 Hypokalemia E87.6 Tachycardia R00.0 Acute kidney injury N17.9
--- NOTE | 2021-04-17 10:11 | PC.CHAP ---
Pastoral Care Encounter/Spiritual Assessment Type of Contact [] Declined psychology instructor visit [] Patient/Family/Request visit [] Outpatient visit [] Follow-up visit [] Physician referral [] Code/Alert [x] Routine visit [] Staff referral [] Actively dying [] Patient sleeping [] Family support [] [] Out of room [] Palliative care [] [] Receiving care in room [] Pre-surgical visit [] Trauma [] Long length of stay [] ICU visit [x] Other: isolated Relational/Emotional Strength [] Patient feels connected with others/family/visitors/staff [] Distress [] Loneliness/isolation [] Abandonment Spirituality of Patient [] Person of Wanda [] Attends Yarsani of their Wanda [] Believes in Prayer [] Reads Bible or Hinduism materials [] There are Spiritual issues to be addressed Insurance Loss Adjuster Interventions [x] Prayer [] Active listening [] Non-anxious presence [] Spiritual/emotional support [] Crisis/trauma care [] Spiritual counseling [] Bereavement support [] Provided bereavement packet [] Provided Bible/devotional materials [] Provided toy/stuffed animal, coloring book to patient or family member [] Provided Communion [] Anointing/[place] [] Salvation [x] Completed spiritual assessment [] Other: Impact on Illness or Injury [] Angry [] Fearful [] Anxious [] Often cries [] Exhaustion [] Unable to work [] Unable to attend catholic [] Unable to walk/stand [] Unable to read [] Unable to drive [] Unable to eat/drink [] Unable to sleep [] Unable to be with family [] Patient intubated [] Other: Summary Time spent with patient
[2021-04-17] MEDS: guaiFENesin-dextromethorphan UDC 10 mL PO ×3 (13:23→20:49)
[2021-04-17] MEDS: piperacillin-tazobactam 3.375 GM in sodium chloride 0.9% (plus) 50 ML IV ×2 (13:24→20:49)
[2021-04-17] MEDS: vancomycin 750 MG in sodium chloride 0.9% 250 ML 250 MG IV (13:52)
[2021-04-17 14:39] LABS: Coronavirus Test Green County Not Detected
--- NOTE | 2021-04-17 21:07 | PC.NURSE ---
Noted patient heart rate increasing to 140s, not sustained. Patient denies any discomforts except feeling hot . Patient does have temperature of 102.[address] Sprague. No orders received. Instructed by doctor to treat fever at this time which was done. No other distress observed.
[2021-04-18] VITALS (10 sets, daily range): BP systolic 106–133; BP diastolic 71–73; PULSE 89–119; RESP 14–22; TEMP 37.2–38.5; O2SAT 90–99
[2021-04-18] MEDS: vancomycin 750 MG in sodium chloride 0.9% 250 ML 250 MG IV ×2 (00:43→13:06)
[2021-04-18] MEDS: enoxaparin 40 mg/0.4 mL Syringe SUBCUT (00:48)
[2021-04-18] MEDS: guaiFENesin-dextromethorphan UDC 10 mL PO ×6 (01:56→20:05)
[2021-04-18] MEDS: piperacillin-tazobactam 3.375 GM in sodium chloride 0.9% (plus) 50 ML IV ×3 (04:07→20:06)
[2021-04-18] MEDS: acetaminophen 325 mg Tablet 650 MG PO ×2 (04:07→20:10)
[2021-04-18 04:15] LABS: Basophils # 0.1 10^3/uL (0.0-0.1); Basophils % 0.5 %; Hematocrit 33.6 % (37.0-47.0); Lymphocytes # 2.3 10^3/uL (0.8-4.8); Lymphocytes % 10.4 %; Mean Corpuscular HGB Conc 32.7 g/dL (30.0-36.0); Mean Corpuscular Hemoglobin 29.3 pg (28.0-34.0); Mean Corpuscular Volume 89.6 fl (81-99); Mean Platelet Volume 11.1 fL (7.4-10.4); Monocytes # 1.4 10^3/uL (0.2-0.9); Monocytes % 6.4 %; Neutrophils # 17.71 10^3/uL (1.8-7.7); Neutrophils % 79.3 %; Nucleated Red Blood Cells % 0 %; Platelet Count 195 10^3/cmm (130-400); Red Blood Count 3.75 10^6/uL (4.1-5.3); Red Cell Distribution Width 13.7 % (12.1-15.1); White Blood Count 22.4 10^3/uL (4.0-10.0)
[2021-04-18 04:37] LABS: Alanine Aminotransferase 15 U/L (0-33); Albumin Level 2.7 g/dL (3.5-5.2); Alkaline Phosphatase 171 IU/L (35-105); Anion Gap 14.5 (5-19); Aspartate Amino Transferase 14 U/L (0-32); Blood Urea Nitrogen 11 mg/dL (6-20); Calcium 7.8 mg/dL (8.5-10.5); Carbon Dioxide 20 mmol/L (22-29); Chloride 105 mmol/L (98-107); Globulin 3.8 g/dL (1.3-4.6); Glucose 97 mg/dL (65-115); Magnesium 2.2 mg/dL (1.7-2.3); Osmolality Calculated 281 mOsm/kg (285-295); Potassium 3.5 mmol/L (3.5-5.1); Sodium 136 mmol/L (136-145); Total Bilirubin 0.4 mg/dL (0.15-1.2); Total Protein 6.5 g/dL (6.6-8.7)
[2021-04-18 05:01] LABS: C Reactive Protein 402.8 mg/L (0.0-4.9)
--- NOTE | 2021-04-18 05:43 | PC.NURSE ---
Shift Note Frequent safety and comfort rounds continue. Orders and/or nursing care completed as indicated. Patient monitored for response to intervention and treatment(s). Education provided includes lovenox, zosyn and vancomycin. Patient verbalized complete understanding. Patient reports feeling much better this am. Heart rate decreasing to 90s -mid 100s. Fever decreasing. Administered tylenol for headache 5/10 and mild temp of 99.0 F orally. No other distresses observed. Patient wanting to get out of bed and move today. Will continue to monitor.
[2021-04-18] MEDS: doxycycline 100 mg Tablet PO ×2 (09:08→18:03)
[2021-04-18 11:03] LABS: Influenza A by IFA Negative (Negative); Influenza B by IFA Negative (Negative)
--- NOTE | 2021-04-18 13:24 | PC.NURSE ---
Patient ordered food from out side the hospital
--- NOTE | 2021-04-18 21:25 | PC.NURSE ---
Received report from ENRIQUE Bailey. Dr De Leon in to see patient at shift change. Discussed plan to continue antibiotics for a couple more days with plan for Thursday discharge. Patient verbalized complete understanding. Denies pain or needs. No distress observed.
--- NOTE | 2021-04-18 23:09 | P.PN_ITS ---
Subjective Subjective: Interval history: Patient was seen and examined this morning, noted T Max: 101.3.SOB and Cough has improved. Suplemental oxygen requirement is going down.Tachycardia has improved. Medications: Reviewed: Yes Vitals/I&O/Wt Last Vital Signs Temp 101.3 F H 04/18/21 20:00 Pulse 102 H 04/18/21 20:00 Resp 22 H 04/18/21 20:00 BP 133/72 04/18/21 20:00 Pulse Ox 97 04/18/21 20:00 04/18/21 04/18/21 04/19/21 14:59 22:59 06:59 Intake Total 300 / 300 50 / 350 Output Total 300 / 300 Balance 0 / 0 50 / 50 Weight last 48 hrs Weight 82.645 kg Physical Exam Const: COMMON NORMALS: patient oriented x3 HENMT: COMMON NORMALS: normocephalic and atraumatic HEAD & SCALP: normocephalic and atraumatic Resp: EFFORT & INSPECTION: Yes symmetric chest movement OTHER: Diminished air entry right lung base. Rest clear, no wheezing no rhonchi Cardio: COMMON NORMALS: regular rate, regular rhythm, S1 normal heart sound present, S2 normal heart sound present, No gallops present (Cardio), No murmurs present (Cardio), No rub (Cardio) and Peripheral pulses 2+ throughout RATE: regular rate RHYTHM: regular rhythm HEART SOUNDS: S1 normal heart sound present and S2 normal heart sound present PERIPHERAL PULSES: Peripheral pulses 2+ throughout GI: COMMON NORMALS: Normal to inspection, nondistended, normoactive bowel sounds present, Soft to palpation, non-tender, No hepatosplenomegaly present and no masses AUSCULTATION: Yes normoactive bowel sounds PALPATION: Yes Soft to palpation and Yes No hepatosplenomegaly present RECTAL EXAM: deferred Extremity: COMMON NORMALS: no clubbing, cyanosis or edema and no pedal edema Neuro: COMMON NORMALS: patient oriented x3 Data : 04/18/21 04:09 04/18/21 04:09 Micro: Microbiology 04/17/21 00:19 Legionella Urinary Antigen - Final Urine,Voided Bacterial Antigens - Final 04/16/21 22:33 Blood Culture - Preliminary Blood NEGATIVE TO DATE 04/16/21 22:30 Blood Culture - Preliminary Blood NEGATIVE TO DATE A&P Assessment and plan (1) Pneumonia: Community-acquired pneumonia: Blood cultures:NTD Sputum culture: Urine cultures: Urine Legionella antigen:Negative Urine bacterial antigen panel: Negative MRSA PCR: COVID PCR:Negative Monitor x-ray chest Vancomycin Zosyn Doxycycline Supplemental oxygen as needed Status: Acute Qualifiers: Laterality: right Lung location: upper lobe of lung Pneumonia type: due to unspecified organism Qualified Code(s): J18.9 - Pneumonia, unspecified organism (2) Severe sepsis: Sepsis secondary to pneumonia Status: Acute (3) Hypokalemia: Status: Acute (4) Tachycardia: Status: Acute (5) Acute kidney injury: Status: Acute Additional A&P Information 30-year-old female with past medical history of asthma, recent exposure to Covid 19 presents with right-sided pneumonia. Has associated severe sepsis with acute kidney injury, dehydration. She also has hypokalemia and mild hyponatremia. Due to strong suspicion for Covid we will put her on isolation and recheck Covid test. For now we will start her on Rocephin and doxycycline. We will monitor her CBC, CRP, procalcitonin. We will hydrate her and recheck her chemistry panel in the morning. She received potassium in the emergency room. I will give her magnesium. Currently she is having sinus tachycardia. Improved with IV fluids. We will continue monitoring. DVT prophylaxis. Lovenox. CODE STATUS: Full code Attestations Medical Necessity Statement*: Patient needs to be in hospital for the management of PNA Coding Level of Care Code Acute Senior Professional Services Consultant for [facility] Diagnoses Pneumonia J18.9 Laterality: right Lung location: upper lobe of lung Pneumonia type: due to unspecified organism Severe sepsis A41.9; R65.20 Hypokalemia E87.6 Tachycardia R00.0 Acute kidney injury N17.9
[2021-04-19] VITALS (10 sets, daily range): BP systolic 111–132; BP diastolic 68–80; PULSE 74–104; RESP 18–26; TEMP 36.3–37.2; O2SAT 94–97
[2021-04-19 00:56] LABS: Vancomycin Trough 7.8 ug/mL (10-15)
[2021-04-19] MEDS: guaiFENesin-dextromethorphan UDC 10 mL PO ×6 (01:26→20:16)
[2021-04-19] MEDS: enoxaparin 40 mg/0.4 mL Syringe SUBCUT (01:26)
[2021-04-19] MEDS: lanolin oint 7 gm 1 APPLIC TOPICAL (01:26)
[2021-04-19] MEDS: vancomycin 1,250 MG/250 ML PIGGYBACK 250 MG IV (01:27)
[2021-04-19] MEDS: piperacillin-tazobactam 3.375 GM in sodium chloride 0.9% (plus) 50 ML IV ×3 (04:41→20:07)
[2021-04-19] MEDS: acetaminophen 325 mg Tablet 650 MG PO (04:45)
[2021-04-19 05:07] LABS: Hematocrit 32.2 % (37.0-47.0); Hemoglobin 10.5 g/dL (11.5-15.3); Mean Corpuscular HGB Conc 32.6 g/dL (30.0-36.0); Mean Corpuscular Hemoglobin 29.2 pg (28.0-34.0); Mean Corpuscular Volume 89.7 fl (81-99); Mean Platelet Volume 11.5 fL (7.4-10.4); Platelet Count 199 10^3/cmm (130-400); Red Blood Count 3.59 10^6/uL (4.1-5.3); Red Cell Distribution Width 14.1 % (12.1-15.1); White Blood Count 18.7 10^3/uL (4.0-10.0)
[2021-04-19 05:49] LABS: Alanine Aminotransferase 13 U/L (0-33); Albumin Level 2.5 g/dL (3.5-5.2); Alkaline Phosphatase 158 IU/L (35-105); Anion Gap 17.6 (5-19); Aspartate Amino Transferase 18 U/L (0-32); Blood Urea Nitrogen 10 mg/dL (6-20); Calcium 7.6 mg/dL (8.5-10.5); Carbon Dioxide 19 mmol/L (22-29); Chloride 106 mmol/L (98-107); Globulin 3.5 g/dL (1.3-4.6); Glucose 82 mg/dL (65-115); Osmolality Calculated 286 mOsm/kg (285-295); Potassium 3.6 mmol/L (3.5-5.1); Sodium 139 mmol/L (136-145); Total Bilirubin 0.3 mg/dL (0.15-1.2)
[2021-04-19 06:10] LABS: Slide Review Slide Review Perform
[2021-04-19 06:16] LABS: Total Cells Counted 100 (0-100)
[2021-04-19 06:17] LABS: Absolute Neutrophil 13.8 10^3/cmm (1.4-6.5); Absolute Segmented Neutrophil 12.3 10/cmm (1.6-7.1); Band Neutrophils Absolute 1.5 10^3/cmm (0.0-1.2); Eosinophils 0 %; Lymphocytes 14 %; Lymphocytes Absolute 3.2 10^3/cmm (1.2-3.4); Monocytes Absolute 0.7 10^3/cmm (0.1-0.6); Platelet Estimate Normal (Normal); Segmented Neutrophils 66 %
[2021-04-19] MEDS: levofloxacin-dextrose 5 % 750 MG/150 ML PREMIX 100 MG IV (08:35)
--- NOTE | 2021-04-19 13:45 | P.PN_ITS ---
Subjective Subjective: Interval history: Patient was seen and examined this morning, noted T Max: 101.3.SOB and Cough has improved. Suplemental oxygen requirement is going down.Tachycardia has improved. Medications: Reviewed: Yes Vitals/I&O/Wt Last Vital Signs Temp 97.3 F L 04/19/21 11:53 Pulse 104 H 04/19/21 11:53 Resp 22 H 04/19/21 11:53 BP 124/74 04/19/21 11:53 Pulse Ox 95 04/19/21 11:53 04/18/21 04/19/21 04/19/21 22:59 06:59 14:59 Intake Total 50 / 350 300 / 650 200 / 200 Output Total 500 / 800 300 / 300 Balance 50 / 50 -200 / -150 -100 / -100 Physical Exam Const: COMMON NORMALS: patient oriented x3 HENMT: COMMON NORMALS: normocephalic and atraumatic HEAD & SCALP: normocephalic and atraumatic Resp: EFFORT & INSPECTION: Yes symmetric chest movement OTHER: Diminished air entry right lung base. Rest clear, no wheezing no rhonchi Cardio: COMMON NORMALS: regular rate, regular rhythm, S1 normal heart sound present, S2 normal heart sound present, No gallops present (Cardio), No murmurs present (Cardio), No rub (Cardio) and Peripheral pulses 2+ throughout RATE: regular rate RHYTHM: regular rhythm HEART SOUNDS: S1 normal heart sound present and S2 normal heart sound present PERIPHERAL PULSES: Peripheral p ulses 2+ throughout GI: COMMON NORMALS: Normal to inspection, nondistended, normoactive bowel sounds present, Soft to palpation, non-tender, No hepatosplenomegaly present and no masses AUSCULTATION: Yes normoactive bowel sounds PALPATION: Yes Soft to palpation and Yes No hepatosplenomegaly present RECTAL EXAM: deferred Extremity: COMMON NORMALS: no clubbing, cyanosis or edema and no pedal edema Neuro: COMMON NORMALS: patient oriented x3 Data : 04/19/21 04:16 04/19/21 04:16 Micro: Microbiology 04/18/21 10:25 MRSA Culture - Final Nose 04/17/21 00:19 Legionella Urinary Antigen - Final Urine,Voided Bacterial Antigens - Final A&P Assessment and plan (1) Pneumonia: Community-acquired pneumonia: Blood cultures:NTD Sputum culture: Urine cultures: Urine Legionella antigen:Negative Urine bacterial antigen panel: Negative MRSA PCR: Negative COVID PCR:Negative Influenza: Negative Monitor x-ray chest Vancomycin , Zosyn , levofloxacin Doxycycline was discontinued Supplemental oxygen as needed Status: Acute Qualifiers: Laterality: right Lung location: upper lobe of lung Pneumonia type: due to unspecified organism Qualified Code(s): J18.9 - Pneumonia, unspecified organism (2) Severe sepsis: Sepsis secondary to pneumonia Status: Acute (3) Hypokalemia: Status: Acute (4) Tachycardia: Status: Acute (5) Acute kidney injury: Status: Acute Additional A&P Information 30-year-old female with past medical history of asthma, recent exposure to Covid 19 presents with right-sided pneumonia. Has associated severe sepsis with acute kidney injury, dehydration. She also has hypokalemia and mild hyponatremia. Due to strong suspicion for Covid we will put her on isolation and recheck Covid test. For now we will start her on Rocephin and doxycycline. We will monitor her CBC, CRP, procalcitonin. We will hydrate her and recheck her chemistry panel in the morning. She received potassium in the emergency room. I will give her magnesium. Currently she is having sinus tachycardia. Improved with IV fluids. We will continue monitoring. DVT prophylaxis. Lovenox. CODE STATUS: Full code Attestations Medical Necessity Statement*: Patient is still in hospital for management of pneumonia. Coding Level of Care Code Acute Directory Carrier for [facility] Fwd Exam Detailed Diagnoses Pneumonia J18.9 Laterality: right Lung location: upper lobe of lung Pneumonia type: due to unspecified organism Severe sepsis A41.9; R65.20 Hypokalemia E87.6 Tachycardia R00.0 Acute kidney injury N17.9
--- NOTE | 2021-04-19 17:57 | PC.NURSE ---
Patient has had an uneventful day today. Patient has remained afebrile and had no complaints.
[2021-04-19] MEDS: ondansetron 2 mg/ML SDV 2 mL 4 MG IVP (19:51)
[2021-04-20] VITALS (7 sets, daily range): BP systolic 112–119; BP diastolic 67–76; PULSE 63–85; RESP 18–24; TEMP 36.8–37.6; O2SAT 93–97
[2021-04-20] MEDS: guaiFENesin-dextromethorphan UDC 10 mL PO ×3 (01:07→10:06)
[2021-04-20] MEDS: enoxaparin 40 mg/0.4 mL Syringe SUBCUT (01:07)
[2021-04-20] MEDS: vancomycin 1,250 MG/250 ML PIGGYBACK 250 MG IV (01:07)
[2021-04-20] MEDS: piperacillin-tazobactam 3.375 GM in sodium chloride 0.9% (plus) 50 ML IV (04:08)
[2021-04-20 05:04] LABS: Basophils # 0.1 10^3/uL (0.0-0.1); Basophils % 0.5 %; Eosinophils # 0.1 10^3/uL (0.0-0.8); Eosinophils % 0.3 %; Hematocrit 31.1 % (37.0-47.0); Hemoglobin 10.1 g/dL (11.5-15.3); Lymphocytes # 3.5 10^3/uL (0.8-4.8); Mean Corpuscular HGB Conc 32.5 g/dL (30.0-36.0); Mean Corpuscular Hemoglobin 28.8 pg (28.0-34.0); Mean Corpuscular Volume 88.6 fl (81-99); Mean Platelet Volume 10.9 fL (7.4-10.4); Monocytes # 0.9 10^3/uL (0.2-0.9); Monocytes % 5.9 %; Neutrophils # 8.56 10^3/uL (1.8-7.7); Neutrophils % 58.8 %; Nucleated Red Blood Cells % 0 %; Platelet Count 251 10^3/cmm (130-400); Red Blood Count 3.51 10^6/uL (4.1-5.3); Red Cell Distribution Width 14.1 % (12.1-15.1); White Blood Count 14.6 10^3/uL (4.0-10.0)
[2021-04-20 05:46] LABS: Alanine Aminotransferase 15 U/L (0-33); Albumin Level 2.7 g/dL (3.5-5.2); Alkaline Phosphatase 161 IU/L (35-105); Anion Gap 15.2 (5-19); Aspartate Amino Transferase 19 U/L (0-32); Blood Urea Nitrogen 9 mg/dL (6-20); Carbon Dioxide 21 mmol/L (22-29); Chloride 107 mmol/L (98-107); Creatinine Clr Calc Pharmacy 116.0294; Globulin 3.5 g/dL (1.3-4.6); Glomerular Filtration Rate 97.6 mL/min (90-130); Glucose 84 mg/dL (65-115); Osmolality Calculated 288 mOsm/kg (285-295); Potassium 3.2 mmol/L (3.5-5.1); Sodium 140 mmol/L (136-145); Total Bilirubin 0.4 mg/dL (0.15-1.2); Total Protein 6.2 g/dL (6.6-8.7)
[2021-04-20 06:08] LABS: Slide Review Slide Review Perform
--- NOTE | 2021-04-20 07:00 | XRR_ITS ---
PROCEDURE INFORMATION: Exam: XR Chest Exam date and time: 04/20/2021 7:00 AM Age: 30 years old Clinical indication: Shortness of breath; Additional info: Pna TECHNIQUE: Imaging protocol: XR of the chest. Views: 1 view. Total images: 1 COMPARISON: CR (CHEST, ) 04/16/2021 10:26 PM FINDINGS: Lungs: Right pulmonary opacity is again noted and has shown interval worsening from the prior exam. Streaky left basilar opacity favors atelectasis. Pleural spaces: Unremarkable. No pleural effusion. No pneumothorax. Heart/Mediastinum: Unremarkable. No cardiomegaly. Bones/joints: Osseous structures are unchanged from the prior exam. XR/XR chest 1V portable [id number] IMPRESSION: 1. Right pulmonary opacity is again noted and has shown interval worsening from the prior exam. 2. Streaky left basilar opacity favors atelectasis. Radiation Dose CTDIVOL = (mGy): DLP = (mGy-cm)
[2021-04-20] MEDS: levofloxacin-dextrose 5 % 750 MG/150 ML PREMIX 100 MG IV (07:55)
[2021-04-20] MEDS: potassium chloride ER 20 mEq Tablet PO (10:05)
--- NOTE | 2021-04-20 12:17 | PM.DCS ---
Discharge Providers Date of Admission: 04/17/21 01:27 Date of Discharge: April 20, 2021 Attending Provider at Admission: Charles Sprague Attending Provider at Discharge: Arian De Leon MD Primary Care Provider: Kennedy Israel MD Diagnoses at Discharge Discharge Diagnosis (1) Pneumonia: Status: Acute Qualifiers: Laterality: right Lung location: upper lobe of lung Pneumonia type: due to unspecified organism Qualified Code(s): J18.9 - Pneumonia, unspecified organism (2) Severe sepsis: Status: Acute (3) Hypokalemia: Status: Acute (4) Tachycardia: Status: Acute (5) Acute kidney injury: Status: Acute Reason for Visit Reason for Visit: Covid Symptoms Hospital Course Hospital Course 30-year-old female with no significant past medical history came in with chief complaint of shortness of breath cough and fever, patient reports that her symptoms had started several days ago prior to the admission and was progressively getting worse.She was admitted for the management of pneumonia, sepsis due to pneumonia, NAYELY. She was kept on broad-spectrum antibiotics, supplemental oxygen as needed, cough medications, and other conservative respiratory support measures, blood cultures:NTD, Urine Legionella antigen:Negative , Urine bacterial antigen panel: Negative, MRSA PCR: Negative, COVID PCR:Negative, Influenza: Negative, CT angio chest PE protcl:Multifocal pneumonia but mostly lobar pneumonia involving the posterior, segment of the right upper lobe. She responded well to the above medical management At the time of discharge afebrile hemodynamically stable, saturating well on room air, he was discharged on additional 5 days of p.o. Augmentin and levofloxacin.Patient responded well to the above medical management and is being discharged in stable condition to home. Physical Exam Const: COMMON NORMALS: patient oriented x3 HENMT: COMMON NORMALS: normocephalic and atraumatic HEAD & SCALP: normocephalic and atraumatic Resp: COMMON NORMALS: normal respiratory effort and clear to auscultation bilaterally EFFORT & INSPECTION: Yes symmetric chest movement AUSCULTATION: clear to auscultation bilaterally Cardio: COMMON NORMALS: regular rate, regular rhythm, S1 normal heart sound present, S2 normal heart sound present, No gallops present (Cardio), No murmurs present (Cardio), No rub (Cardio) and Peripheral pulses 2+ throughout RATE: regular rate RHYTHM: regular rhythm HEART SOUNDS: S1 normal heart sound present and S2 normal heart sound present PERIPHERAL PULSES: Peripheral pulses 2+ throughout GI: COMMON NORMALS: Normal to inspection, nondistended, normoactive bowel sounds present, Soft to palpation, non-tender, No hepatosplenomegaly present and no masses AUSCULTATION: Yes normoactive bowel sounds PALPATION: Yes Soft to palpation and Yes No hepatosplenomegaly present RECTAL EXAM: deferred Extremity: COMMON NORMALS: no clubbing, cyanosis or edema and no pedal edema Neuro: COMMON NORMALS: patient oriented x3 Discharge Data Data Completed and Pending: Completed Studies During Hospitalization Category Date Time Status CT angio chest PE protcl [id number] Urge nt Cat Scan 04/16/21 22:51 Completed XR chest 1V oswald ble [id number] Routine Exams 04/20/21 07:00 Completed XR chest 1V oswald ble [id number] Stat Exams 04/16/21 22:10 Completed Pending at discharge Category Date Time Status Blood Culture Sta t Lab 04/16/21 22:33 Results Complete Blood Co unt w/Auto AM LABS Lab 04/21/21 04:00 Ordered Comprehensive Met abolic Panel AM LA BS Lab 04/21/21 04:00 Ordered Sputum Culture Ro utine Lab 04/17/21 16:36 Uncollected Labs from last 24 hours 04/20/21 04/20/21 03:50 03:50 WBC 14.6 H RBC 3.51 L Hgb 10.1 L Hct 31.1 L MCV 88.6 MCH 28.8 MCHC 32.5 RDW 14.1 Plt Count 251 MPV 10.9 H Neut % (Auto) 58.8 Lymph % (Auto) 24.0 [place] % (Auto) 5.9 Eos % (Auto) 0.3 Baso % (Auto) 0.5 Neut # (Auto) 8.56 H Lymph # (Auto) 3.5 [place] # (Auto) 0.9 Eos # (Auto) 0.1 Baso # (Auto) 0.1 Nucleated RBC % (a uto) 0 Nucleated RBCs # 0.0 Sodium 140 Potassium 3.2 L Chloride 107 Carbon Dioxide 21 L Anion Gap 15.2 BUN 9 Creatinine 0.7 GFR Calculation 97.6 Glucose 84 Calculated Osmolal ity 288 Calcium 8.0 L Total Bilirubin 0.4 AST 19 ALT 15 Alkaline Phosphata se 161 H Total Protein 6.2 L Albumin 2.7 L Globulin 3.5 Vitals: Last Vital Signs Temp 98.3 F 04/20/21 08:30 Pulse 83 04/20/21 09:14 Resp 18 04/20/21 09:14 BP 113/67 04/20/21 08:30 Pulse Ox 95 04/20/21 09:14 Discharge Plan Discharge Patient Disposition: Home Condition: Stable Prescriptions: New Augmentin 500-125 mg tablet 1 tab PO BID Qty: 10 RF: 0 benzonatate 100 mg Capsule 100 mg PO TID PRN (Reason: Cough) 7 Days Qty: 21 RF: 0 levofloxacin 500 mg tablet 500 mg PO DAILY 5 Days Qty: 5 RF: 0 Continued acetaminophen 500 mg Tablet 1,000 mg PO Q4H PRN (Reason: Pain) RF: 0 ibuprofen 200 mg Tablet 400 mg PO Q4H PRN (Reason: Pain) RF: 0 Nexplanon 68 mg Implant See Rx Instructions .ROUTE .COMPLEX RF: 0 Discharge Orders: Discharge Order (Routine); Ordered 04/20/21 Ordered By: Arian De Leon Referrals: Kennedy Israel MD [Primary Care Provider] - ([facility] will contact you to schedule an follow-up appointment in 4 to 7 days. If you haven't heard from them Thursday. Please call ) Patient Instructions: Benzonatate (By mouth), Amoxicillin/Clavulanate Potassium (By mouth) (Augmentin, Augmentin..., Levofloxacin (By mouth), Pneumonia (DC), Opioid Safety, Pneumonia Stoplight Discharge Attestations Time Spent in Discharge Care*: less than 30 min Specific Discharge Activities: educating patient, educating and/or supporting family/caregiver, discussing with pcp/other providers, discussing with catalytic case operator/social workers/dc planners, documenting/other paperwork and evaluating patient/reviewing data Status at Discharge: Cognitive status at discharge: cognitively intact, Behavioral status at discharge: cooperative, Functional status at discharge: independent ambulation Overall status at discharge: patient is back to baseline Quality Metrics Clinical Quality Measures During this hospital stay, did patient experience: None Coding Level of Care Code Acute Chg FW DC note Exam Detailed Diagnoses Pneumonia J18.9 Laterality: right Lung location: upper lobe of lung Pneumonia type: due to unspecified organism Severe sepsis A41.9; R65.20 Hypokalemia E87.6 Tachycardia R00.0 Acute kidney injury N17.9
--- NOTE | 2021-04-20 12:31 | PC.NURSE ---
Discharge Note Patient discharged to home self-care via wheelchair accompanied by self. Discharge instructions reviewed with patient and/or goodwill representative. Mobile pharmacy medications and/or prescriptions provided. Belongings/home medications returned.
== END 2021-04-20 12:31 | disposition home or self-care (01) | DRG 871 ==
LOC: ER 04-17 00:23 → CSU 04-17 05:59 → MEDSURG 04-17 05:59
PROVIDERS: Nurse Practitioner Family; Admitting Provider Internal Medicine; Emergency Provider Emergency Medicine; PCP Family Medicine; Visit Provider Internal Medicine
DX: A41.9 Sepsis, unspecified organism (principal); J18.9 Pneumonia, unspecified organism; N17.9 Acute kidney failure, unspecified; E87.1 Hypo-osmolality and hyponatremia; E87.6 Hypokalemia; R65.20 Severe sepsis without septic shock; E86.0 Dehydration; J45.909 Unspecified asthma, uncomplicated; Z20.822 Contact with and (suspected) exposure to COVID-19
CPT/HCPCS: 36415; 71045; 71275; 80053; 80202; 81001; 83605; 83735; 83880; 84145; 84703; 85007; 85025; 85378; 86140; 86403; 87040; 87426; 87449; 87635; 87641; 87804; 93005; 96365; 96367; 96372; 96375; 99291; J0456; J0696; J1650; J1956; J2405; J2543; J3370; J3475; J3490; J7030; J7040; J7050; Q9967

== ENCOUNTER → 2021-06-19 09:01 | Outpatient (BNVA) | payer MEDICAID, SELFPAY | PROVIDERS: PCP Family Medicine; Visit Provider Nurse Practitioner Women's Health | DX: N89.8 Other specified noninflammatory disorders of vagina (principal) | CPT/HCPCS: 87070; 87077; 87184; 87205; 87491; 87591; 87661 ==

== ENCOUNTER → 2021-09-26 14:28 | Outpatient (BNVA) | payer MEDICAID, SELFPAY | PROVIDERS: PCP Family Medicine; Visit Provider Nurse Practitioner Women's Health | DX: Z01.419 Encounter for gynecological examination (general) (routine) without abnormal findings (principal); Z11.3 Encounter for screening for infections with a predominantly sexual mode of transmission | CPT/HCPCS: 86592; 86803; 87340; 87491; 87591; 87661; 87806; 88175 ==

== ENCOUNTER → 2021-12-10 15:10 | Outpatient (BNVA) | payer MEDICAID, SELFPAY | PROVIDERS: PCP Family Medicine; Visit Provider Obstetrics & Gynecology | DX: R87.610 Atypical squamous cells of undetermined significance on cytologic smear of cervix (ASC-US) (principal); R87.810 Cervical high risk human papillomavirus (HPV) DNA test positive | CPT/HCPCS: 81025; 88305 ==

== ENCOUNTER → 2022-03-19 13:54 | Outpatient (BNVA) | payer MEDICAID, SELFPAY | PROVIDERS: PCP Family Medicine; Visit Provider Nurse Practitioner Women's Health | DX: Z30.9 Encounter for contraceptive management, unspecified (principal); Z30.430 Encounter for insertion of intrauterine contraceptive device | CPT/HCPCS: 81025 ==

== ENCOUNTER 2022-03-22 22:20 | Emergency (ER) | payer MEDICAID, SELFPAY ==
[2022-03-22 22:27] VITALS: BP 146/92; PULSE 138; RESP 16; TEMP 36.8; O2SAT 100
--- NOTE | 2022-03-22 22:32 | XRR_ITS ---
PROCEDURE INFORMATION: Exam: XR Chest Exam date and time: 03/22/2022 11:00 PM Age: 31 years old Clinical indication: Chest wall pain; Additional info: Cp TECHNIQUE: Imaging protocol: Radiologic exam of the chest. Views: 1 view. COMPARISON: CR XR chest 1V portable [id number] 04/20/2021 6:58 AM FINDINGS: Lungs: Unremarkable. No consolidation. Pleural spaces: Unremarkable. No pleural effusion. No pneumothorax. Heart/Mediastinum: Unremarkable. No cardiomegaly. Bones/joints: Unremarkable. XR/XR chest 1V portable [id number] IMPRESSION: No acute findings.
--- NOTE | 2022-03-22 22:32 | ECG_ITS ---
[facility] Test Date: 2022-03-22 Pat Name: Kerrie Ibrahim Department: Room: Gender: Female Therapeutic Specialist: : 1990 Requested By: Ashley Resendez Order Number: [id number] Perez MD: Dion Finley M.D. Measurements Intervals [place] Rate: 137 P: 70 MI: 149 QRS: 52 QRSD: 74 T: 70 QT: 268 QTc: 406 Interpretive Statements SINUS TACHYCARDIA Compared to ECG 04/16/2021 23:36:34 ST (T wave) deviation no longer present Electronically Signed On 03-23-2022 21:59:31 CDT by Dion Finley M.D. [email or web address]
--- NOTE | 2022-03-22 22:36 | ED_ITS ---
HPI - Arrhythmia/Palpitations General: Chief Complaint: Arrhythmia/Palpitations Stated Complaint: fast HR Time Seen by Provider: 03/22/22 22:32 Source: patient Mode of arrival: ambulatory Limitations: no limitations History of Present Illness: 31-year-old female states she has had palpitations throughout the evening. States she just felt her heart racing and checked her heart rate and it was the 130s. Patient denies any pain in her chest she states she had some slight pain in her shoulder blades denies any shortness of breath. She recently had a copper Implanon placed earlier this week. Denies any fevers. Does have a history of anxiety. Associated symptoms: Deny nausea or vomiting Review of Systems Const: Denies: fever(s), chills, body aches or change in appetite Eyes: Denies: blurry vision or eye discomfort ENMT: Denies: throat pain or dental pain Card: Reports: palpitations Resp: Denies: dyspnea GI: Denies: abdominal pain, nausea, vomiting or diarrhea : Denies: dysuria Musc: Denies: neck pain or back pain Skin/Breast: Denies: rash Neuro: Denies: headache(s) Psych: Denies: depression Chadwick/Lymph: Denies: easy bruising All/Imm: Denies: urticaria PFSH ED PFSH: Medical History Asthma Diagnosed at the age of 9 controlled with as needed albuterol inhaler managed by her PMD. No pertinent past medical history Denies diabetes, hypertension, seizures, DVT/PE PCP: Dr. Israel PCOS (polycystic ovarian syndrome) resolved with her weight loss Surgical History H/O oral surgery History of cholecystectomy 2014--laparoscopic procedure Hx of section (05/24/14) Perfomed per Dr. Perez Hx of dilation and curettage (~2012) Family History Grandfather Diabetes Paternal and maternal Heart disease Maternal Grandmother Diabetes Paternal Hypertension Maternal Denies family history of Colon cancer Ovarian cancer Hypercholesteremia Breast cancer Uterine cancer Thyroid disease Stroke Social History Smoking and tobacco status: former smoker Female Reproductive History: Date of last menstrual period: 04/07/21 Physical Exam Const: COMMON NORMALS: no acute distress, patient oriented x3 and healthy appearing HENMT: COMMON NORMALS: normocephalic and atraumatic HEAD & SCALP: normocephalic and atraumatic Eye: COMMON NORMALS: Equal, round and reactive pupils present and EOMs intact bilaterally PUPIL: Yes Equal, round and reactive pupils present Neck/C-Spine: COMMON NORMALS: full ROM and supple Chest: COMMONS NORMALS: normal inspection of the chest and normal palpation of entire chest wall Resp: COMMON NORMALS: normal respiratory effort, No retractions, No use of accessory muscles and clear to auscultation bilaterally AUSCULTATION: clear to auscultation bilaterally Cardio: COMMON NORMALS: regular rhythm and No murmurs present (Cardio) RATE: tachycardic RHYTHM: regular rhythm GI: COMMON NORMALS: Normal to inspection, nondistended, normoactive bowel sounds present, Soft to palpation, non-tender and no masses PALPATION: Yes Soft to palpation Extremity: COMMON NORMALS: normal to inspection and full ROM Neuro: COMMON NORMALS: patient oriented x3, moves all extremities and no focal motor deficits Psych: COMMON NORMALS: mental status grossly normal, Normal thought process present and cooperative THOUGHT PROCESS: Normal thought process present Skin: COMMON NORMALS: no rashes or lesions noted and no wounds GENERAL SKIN EXAM: no rashes or lesions noted Course Vital Signs: Vital signs: Vital Signs Temperature 98.3 F 03/22/22 22:27 Pulse Rate 110 H 03/23/22 03:16 Respiratory Rate 23 H 03/23/22 03:16 Blood Pressure 108/74 03/23/22 03:16 Pulse Oximetry 96 03/23/22 02:55 Oxygen Delivery Me thod 03/23/22 01:12 MDM - Arrhythmia/Palpitations Medical Decision Making Patient presents here tachycardia that has improved while she has been here she has no signs of infection urinalysis is normal CT of her chest is normal she does feel improved some this could be anxiety she has no signs of septic shock her lactate was normal had a mild leukocytosis she is to follow-up with PCP in 2 to 4 days return if worsening she understands agrees to plan. Lab Data : 03/22/22 22:41 03/22/22 23:54 Radiology Impressions Chest X-Ray 03/22/22 22:32 IMPRESSION: No acute findings. Chest CTA 03/22/22 23:53 IMPRESSION: 1. There is no evidence for pulmonary emboli. 2. Strandy opacities in the right upper lobe posteriorly likely represents atelectasis versus parenchymal or pleural scarring. Laboratory Results WBC 18.0 10^3/uL (4.0-10.0) H 03/22/22 22:41 RBC 4.59 10^6/uL (4.1-5.3) 03/22/22 22:41 Hgb 14.2 g/dL (11.5-15.3) 03/22/22 22:41 Hct 42.6 % (37.0-47.0) 03/22/22 22:41 MCV 92.8 fl (81-99) 03/22/22 22:41 MCH 30.9 pg (28.0-34.0) 03/22/22 22:41 MCHC 33.3 g/dL (30.0-36.0) 03/22/22 22:41 RDW 12.3 % (12.1-15.1) 03/22/22 22:41 Plt Count 189 10^3/cmm (130-400) 03/22/22 22:41 MPV 12.5 fL (7.4-10.4) H 03/22/22 22:41 Neut % (Auto) 79.3 % 03/22/22 22:41 Lymph % (Auto) 12.4 % 03/22/22 22:41 Davison % (Auto) 5.8 % 03/22/22 22:41 Eos % (Auto) 1.1 % 03/22/22 22:41 Baso % (Auto) 0.7 % 03/22/22 22:41 Neut # (Auto) 14.31 10^3/uL (1.8-7.7) H 03/22/22 22:41 Lymph # (Auto) 2.2 10^3/uL (0.8-4.8) 03/22/22 22:41 Davison # (Auto) 1.1 10^3/uL (0.2-0.9) H 03/22/22 22:41 Eos # (Auto) 0.2 10^3/uL (0.0-0.8) 03/22/22 22:41 Baso # (Auto) 0.1 10^3/uL (0.0-0.1) 03/22/22 22:41 Nucleated RBC % (auto) 0 % 03/22/22 22:41 Nucleated RBCs # 0.0 /100WBC 03/22/22 22:41 D-Dimer 0.71 ug/mIFEU (0-0.59) H 03/22/22 22:41 Sodium 138 mmol/L (136-145) 03/22/22 23:54 Potassium 4.0 mmol/L (3.5-5.1) 03/22/22 23:54 Chloride 102 mmol/L (98-107) 03/22/22 23:54 Carbon Dioxide 23 mmol/L (22-29) 03/22/22 23:54 Anion Gap 17.0 (5-19) 03/22/22 23:54 BUN 7 mg/dL (6-20) 03/22/22 23:54 Creatinine 0.8 mg/dL (0.5-0.9) 03/22/22 23:54 GFR Calculation 83.1 mL/min (90-130) L 03/22/22 23:54 Glucose 108 mg/dL (65-115) 03/22/22 23:54 Calculated Osmolality 285 mOsm/kg (285-295) 03/22/22 23:54 Lactate 1.1 mmol/L (0.5-2.2) 03/23/22 02:00 Calcium 9.0 mg/dL (8.5-10.5) 03/22/22 23:54 Total Bilirubin 0.3 mg/dL (0.15-1.2) 03/22/22 23:54 AST 21 U/L (0-32) 03/22/22 23:54 ALT 17 U/L (0-33) 03/22/22 23:54 Alkaline Phosphatase 94 U/L (35-105) 03/22/22 23:54 Troponin T Baseline 6 ng/L (0-10) 03/22/22 22:41 Troponin T 120 Minute 6.00 ng/L (0-10) 03/22/22 23:54 Delta Troponin T 0 ABS# (0-10) 03/22/22 23:54 Total Protein 8.2 g/dL (6.6-8.7) 03/22/22 23:54 Albumin 4.3 g/dL (3.5-5.2) 03/22/22 23:54 Globulin 3.9 g/dL (1.3-4.6) 03/22/22 23:54 TSH 2.94 uIU/mL (0.27-4.20) 03/22/22 23:54 Free T4 1.00 ng/dL (0.82-1.77) 03/22/22 23:54 HCG, Qual Negative (Negative) 03/23/22 00:02 Urine Color Colorless (Yellow) 03/23/22 02:33 Urine Appearance Clear (CLEAR) 03/23/22 02:33 Urine pH 6.5 (5-7) 03/23/22 02:33 Ur Specific [place] 1.005 (1.005-1.030) 03/23/22 02:33 Urine Protein Neg (Negative) 03/23/22 02:33 Urine Glucose (UA) Norm (Normal) 03/23/22 02:33 Urine Ketones Negative (Negative) 03/23/22 02:33 Urine Blood Neg (Negative) 03/23/22 02:33 Urine Nitrate Negative (Negative) 03/23/22 02:33 Urine Bilirubin Neg (Negative) 03/23/22 02:33 Urine Urobilinogen Neg mg/dL (Negative) 03/23/22 02:33 Ur Leukocyte Esterase Negative (Negative) 03/23/22 02:33 EKG Data EKG 1: I personally reviewed and interpreted this EKG as follows: EKG interpretation date: 03/22/22 EKG interpretation time: 22:35 Interpretation: sinus tach hr [address] or t wave abnormalities qrs 74 qtc 348 Other EKG comments: Chest X-Ray 03/22/22 22:32 IMPRESSION: No acute findings. Chest CTA 03/22/22 23:53 IMPRESSION: 1. There is no evidence for pulmonary emboli. 2. Strandy opacities in the right upper lobe posteriorly likely represents atelectasis versus parenchymal or pleural scarring. Discharge Plan Discharge Patient Disposition: Home Clinical Impression: Sinus tachycardia Condition: Stable Prescriptions: No Action albuterol sulfate [Ventolin HFA] 90 mcg/actuation HFA aerosol inhaler 2 puff inhalation Q6H PRN multivitamin Tablet 1 tab PO DAILY acetaminophen 500 mg Tablet 1,000 mg PO Q4H PRN (Reason: Pain) ibuprofen 200 mg Tablet 400 mg PO Q4H PRN (Reason: Pain) Discharge Orders: Discharge ED (Routine); Ordered 03/23/22 Ordered By: Ashley Resendez Referrals: Kennedy Israel MD [Primary Care Provider] - Discharge Diet: Advance as tolerated Discharge Activity: Resume usual activity Patient Instructions: Tachycardia (ED) Coding Level of Care Code ED Dog Day Care Attendant for Chg Fwd Exam Comprehensive
[2022-03-22] MEDS: LORazepam 2 mg Tablet PO (22:44)
[2022-03-22 22:46] LABS: Basophils # 0.1 10^3/uL (0.0-0.1); Basophils % 0.7 %; Eosinophils # 0.2 10^3/uL (0.0-0.8); Eosinophils % 1.1 %; Hematocrit 42.6 % (37.0-47.0); Hemoglobin 14.2 g/dL (11.5-15.3); Lymphocytes # 2.2 10^3/uL (0.8-4.8); Lymphocytes % 12.4 %; Mean Corpuscular HGB Conc 33.3 g/dL (30.0-36.0); Mean Corpuscular Hemoglobin 30.9 pg (28.0-34.0); Mean Corpuscular Volume 92.8 fl (81-99); Mean Platelet Volume 12.5 fL (7.4-10.4); Monocytes # 1.1 10^3/uL (0.2-0.9); Monocytes % 5.8 %; Neutrophils # 14.31 10^3/uL (1.8-7.7); Neutrophils % 79.3 %; Nucleated Red Blood Cells % 0 %; Platelet Count 189 10^3/cmm (130-400); Red Blood Count 4.59 10^6/uL (4.1-5.3); Red Cell Distribution Width 12.3 % (12.1-15.1)
[2022-03-22 22:59] LABS: Slide Review Slide Review Perform
[2022-03-22 23:43] LABS: Troponin(5th) Baseline 6 ng/L (0-10)
[2022-03-22 23:50] LABS: D Dimer 0.71 ug/mIFEU (0-0.59)
--- NOTE | 2022-03-22 23:53 | CTR_ITS ---
PROCEDURE INFORMATION: Exam: CTA Chest With Contrast Exam date and time: 03/23/2022 1:00 AM Age: 31 years old Clinical indication: Other: Rapid heart rate; Additional info: Cp TECHNIQUE: Imaging protocol: Computed tomographic angiography of the chest with contrast. 3D rendering (Not supervised by radiologist): MIP and/or 3D reconstructed images were created by the technologist. Radiation optimization: All CT scans at this facility use at least one of these dose optimization techniques: automated exposure control; mA and/or kV adjustment per patient size (includes targeted exams where dose is matched to clinical indication); or iterative reconstruction. Contrast material: OMNI 350; Contrast volume: 100 ml; Contrast route: INTRAVENOUS (IV); COMPARISON: CT angio chest PE protcl [id number] 04/16/2021 11:13 PM RADIATION DOSE METRICS: Total DLP (mGy-cm): 383.99 FINDINGS: Pulmonary arteries: Normal. No pulmonary emboli. Aorta: Unremarkable. No aortic aneurysm. No aortic dissection. Lungs: Some strandy opacities are seen in the right upper lobe posteriorly likely representing atelectasis versus parenchymal or pleural scarring. Pleural spaces: See Lungs finding. Heart: Unremarkable. No cardiomegaly. No pericardial effusion. Lymph nodes: Unremarkable. No enlarged lymph nodes. Bones/joints: Unremarkable. No acute fracture. Soft tissues: Unremarkable. CT/CT angio chest PE protcl [id number] IMPRESSION: 1. There is no evidence for pulmonary emboli. 2. Strandy opacities in the right upper lobe posteriorly likely represents atelectasis versus parenchymal or pleural scarring.
[2022-03-22] MEDS: lactated ringers 1,000 ML 999 ML IV (23:56)
[2022-03-22 23:59] VITALS: BP 125/76; PULSE 121; RESP 16; O2SAT 100
[2022-03-23] VITALS (24 sets, daily range): BP systolic 108–151; BP diastolic 74–100; PULSE 110–153; RESP 13–30; O2SAT 94–100
[2022-03-23 00:24] LABS: Alanine Aminotransferase 17 U/L (0-33); Albumin Level 4.3 g/dL (3.5-5.2); Alkaline Phosphatase 94 U/L (35-105); Aspartate Amino Transferase 21 U/L (0-32); Blood Urea Nitrogen 7 mg/dL (6-20); Carbon Dioxide 23 mmol/L (22-29); Chloride 102 mmol/L (98-107); Creatinine Clr Calc Pharmacy 98.5122; Globulin 3.9 g/dL (1.3-4.6); Glomerular Filtration Rate 83.1 mL/min (90-130); Glucose 108 mg/dL (65-115); Osmolality Calculated 285 mOsm/kg (285-295); Sodium 138 mmol/L (136-145); Total Bilirubin 0.3 mg/dL (0.15-1.2); Total Protein 8.2 g/dL (6.6-8.7)
--- NOTE | 2022-03-23 00:32 | ECG_ITS ---
[facility] Test Date: 2022-03-23 Pat Name: Kerrie Ibrahim Department: Room: Gender: Female Inventory Representative: : 1990 Requested By: Ashley Resendez Order Number: [id number] Perez MD: Dion Finley M.D. Measurements Intervals [place] Rate: 121 P: 74 NM: 148 QRS: 56 QRSD: 75 T: 77 QT: 273 QTc: 388 Interpretive Statements SINUS TACHYCARDIA Compared to ECG 03/22/2022 22:35:49 No significant changes Electronically Signed On 03-23-2022 22:08:18 CDT by Dion Finley M.D. [id number]
[2022-03-23 00:50] LABS: HCG, Serum Qual Negative (Negative)
[2022-03-23] MEDS: iohexol 350 mg/mL 100 mL Btl IV (01:12)
[2022-03-23] MEDS: metoprolol tartrate 25 mg Tablet PO (01:19)
[2022-03-23 01:23] LABS: Troponin 5 2HR Delta 0 ABS# (0-10)
[2022-03-23] MEDS: sodium chloride 0.9% 1,000 ML 999 ML IV (01:53)
[2022-03-23] MEDS: acetaminophen 500 mg Tablet 1000 MG PO (01:53)
[2022-03-23] MEDS: LORazepam 1 mg Tablet PO (01:53)
[2022-03-23 02:17] LABS: Thyroid Stimulating Hormone 2.94 uIU/mL (0.27-4.20)
[2022-03-23 02:22] LABS: Lactate (Lactic Acid level) 1.1 mmol/L (0.5-2.2)
[2022-03-23 02:37] LABS: Add Urine Microscopic? NO; Charge for UA Resulting for Rev
[2022-03-23 02:46] LABS: Specific Gravity, Urine 1.005 (1.005-1.030); Urine Appearance Clear (CLEAR); Urine Color Colorless (Yellow); pH Urine 6.5 (5-7)
[2022-03-23 02:47] LABS: Bilirubin Urine Neg (Negative); Blood Urine Neg (Negative); Glucose Urine UA Norm (Normal); Ketones Urine Negative (Negative); Leukocyte Esterase Urine Negative (Negative); Nitrate Urine Negative (Negative); Protein Urine Neg (Negative); Urobilinogen Urine Neg (Negative)
== END 2022-03-23 03:26 | disposition home or self-care (01) ==
PROVIDERS: Emergency Provider Emergency Medicine; PCP Family Medicine
DX: R00.0 Tachycardia, unspecified (principal); Z87.891 Personal history of nicotine dependence
CPT/HCPCS: 71045; 71275; 80053; 81003; 83605; 84439; 84443; 84484; 84703; 85025; 85378; 93005; 96360; 96361; 99285; J7030; Q9967

== ENCOUNTER → 2022-05-27 15:32 | Outpatient (BNVA) | payer MEDICAID, SELFPAY | PROVIDERS: PCP Family Medicine; Visit Provider Nurse Practitioner Women's Health | DX: R10.32 Left lower quadrant pain (principal); Z30.431 Encounter for routine checking of intrauterine contraceptive device | CPT/HCPCS: 76830 ==

== ENCOUNTER 2022-06-01 22:33 | Emergency (ER) | payer MEDICAID, SELFPAY ==
[2022-06-01 22:40] VITALS: PULSE 104; RESP 18; TEMP 36.7; O2SAT 98; BMI 31.1
[2022-06-02] MEDS: predniSONE 20 mg Tablet 40 MG PO (01:48)
[2022-06-02] MEDS: ketorolac 60 mg/2 mL INJ IM (01:49)
[2022-06-02 01:59] VITALS: BP 104/63; PULSE 94; RESP 20; TEMP 36.9; O2SAT 98
--- NOTE | 2022-06-02 02:56 | ED_ITS ---
HPI - Back Pain/Injury General: Chief Complaint: Back Pain/Injury Stated Complaint: back pain into legs Time Seen by Provider: 06/02/22 01:19 Source: patient Mode of arrival: ambulatory Limitations: no limitations History of Present Illness: Patient presents emergency department today for evaluation and treatment of 1 month of low back pain. Patient reports chronic issues with her back and states she often goes to a chiropractor however, she is try to go to the chiropractor recently but has not had any relief of her discomfort. Patient is complaining of low back pain with radiating pain into her right leg. She denies any injuries. 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 Patient denies any bowel or bladder dysfunction and denies saddle paresthesia though she indicates feeling somewhat numb to her right leg. Patient is still independently ambulatory and weightbearing but states that it is difficult to find a comfortable position as she is starting to have discomfort in the left leg as well. Patient states she has been taking Tylenol and ibuprofen without noticeable improvement. Review of Systems General: Reports: 10 or more systems reviewed and unremarkable except in HPI and below Musc: Reports: back pain and extremity pain; Denies: extremity swelling, joint stiffness or muscle weakness Neuro: Denies: weakness in extremities, lack of coordination or frequent falls PFSH ED PFSH: Medical History Asthma Diagnosed at the age of 9 controlled with as needed albuterol inhaler managed by her PMD. No pertinent past medical history Denies diabetes, hypertension, seizures, DVT/PE PCP: Dr. Israel PCOS (polycystic ovarian syndrome) resolved with her weight loss Surgical History H/O oral surgery History of cholecystectomy 2014--laparoscopic procedure Hx of section (05/24/14) Perfomed per Dr. Perez Hx of dilation and curettage (~2012) Family History Grandfather Diabetes Paternal and maternal Heart disease Maternal Grandmother Diabetes Paternal Hypertension Maternal Denies family history of Colon cancer Ovarian cancer Hypercholesteremia Breast cancer Uterine cancer Thyroid disease Stroke Social History Smoking and tobacco status: former smoker Alcohol intake: never Female Reproductive History: Date of last menstrual period: 05/04/22 Physical Exam Const: COMMON NORMALS: no acute distress, patient oriented x3 and alert HENMT: COMMON NORMALS: normocephalic, atraumatic and hearing grossly normal bilaterally HEAD & SCALP: normocephalic and atraumatic Eye: COMMON NORMALS: Equal, round and reactive pupils present, EOMs intact bilaterally and conjunctivae normal CONJUNCTIVA: Yes conjunctivae normal PUPIL: Yes Equal, round and reactive pupils present Neck/C-Spine: COMMON NORMALS: full ROM and no JVD Lymph: LYMPHATIC: no lymphadenopathy noted Resp: COMMON NORMALS: normal respiratory effort, No retractions and No use of accessory muscles Cardio: COMMON NORMALS: no JVD and regular rate RATE: regular rate Extremity: NARRATIVE EXTREMITY EXAM: Patient has preserved full range of motion to the lower extremities. Patient is independently dilatory and weightbearing. Patient has generalized tenderness on both sides of her extreme lower back. Patient is able to stand and sit unassisted. Neuro: COMMON NORMALS: patient oriented x3 SENSORIUM/ORIENTATION: Yes alert Psych: COMMON NORMALS: mental status grossly normal, Normal thought process present, cooperative and normal affect THOUGHT PROCESS: Normal thought process present Skin: COMMON NORMALS: no rashes or lesions noted and turgor normal GENERAL SKIN EXAM: no rashes or lesions noted and turgor normal Course Vital Signs: Vital signs: Vital Signs Temperature 98.4 F 06/02/22 01:59 Pulse Rate 94 06/02/22 01:59 Respiratory Rate 20 H 06/02/22 01:59 Blood Pressure 104/63 06/02/22 01:59 Pulse Oximetry 98 06/02/22 01:59 Oxygen Delivery Me thod 06/02/22 01:59 MDM - Back Pain/Injury Medical Decision Making Patient presents today with many weeks of low back pain without known injury or trauma. She has remained ambulatory weightbearing and has continued to work during this time. She has been using Tylenol and ibuprofen but has not noticed significant improvement. Description, location of pain, and physical exam all point to an acute sciatica. She shows no signs of pudendal nerve injury. Patient was treated here in the emergency department with NSAID and steroid. She was given a muscle relaxer to take home with her given the time of night and lack of availability at the pharmacy. However, patient is driving herself and she was told not to take the medication until she returns home as we discussed the sedating side effect of this medication. Patient was given continued medications at the pharmacy to take the next several days as well as at home instructions for use of ice or heat with caution about overexerting herself. Recommended follow-up appointment with her primary care doctor at the end of the week for recheck. She is to return to the ER for any bowel or bladder dysfunction or saddle paresthesia. Differential Diagnosis Likely lumbar radiculopathy, sciatica and strain of lumbar region; Unlikely renal colic, pyelonephritis, AAA or discitis Discharge Plan Discharge Patient Disposition: Home Clinical Impression: Acute low back pain with sciatica Condition: Stable Prescriptions: New cyclobenzaprine 10 mg tablet 10 mg PO Q8H Qty: 20 0RF prednisone 20 mg tablet 20 mg PO BID 5 Days Qty: 10 0RF naproxen 500 mg tablet 500 mg PO BID PRN (Reason: pain) Qty: 20 0RF No Action albuterol sulfate [Ventolin HFA] 90 mcg/actuation HFA aerosol inhaler 2 puff inhalation Q6H PRN ParaGard T 380A 380 square mm intrauterine device intrauterine metronidazole 500 mg tablet 500 mg PO BID Qty: 14 0RF multivitamin Tablet 1 tab PO DAILY fluticasone propion-salmeterol [Advair Diskus] 250-50 mcg/dose blister with device 1 inh inhalation BID acetaminophen 500 mg Tablet 1,000 mg PO Q4H PRN (Reason: Pain) ibuprofen 200 mg Tablet 400 mg PO Q4H PRN (Reason: Pain) Discharge Orders: Discharge ED (Routine); Ordered 06/02/22 Ordered By: Ginny Figueroa Referrals: Kennedy Israel MD [Primary Care Provider] - Discharge Diet: Usual diet Discharge Activity: Increase activity as tolerated Patient Instructions: Lumbar Radiculopathy (ED), Sciatica Activity Restrictions/Additional Instructions: The examination and explanation of your pain today sounds very much like a acute low back pain with radiculopathy causing sciatic nerve pain. This can be extremely painful throughout the entire length of your leg. We will treat you with several different medications. Please be aware that the cyclobenzaprine can make you feel drowsy and sedated. We do not recommend driving or working while taking this medication and you should not drink any alcohol. If you are taking naproxen you can still take Tylenol but we encourage you to avoid any ibuprofen, Aleve, Advil, or Motrin as these are similar medications and can cause issues with your stomach and kidneys. You can apply a heating pad or ice pack to your low back for 15 to 20 minutes, multiple times throughout the day for additional comfort. Avoid any excessive pushing, pulling, lifting, or carrying for the next several days. We recommend a follow-up appointment with your primary care doctor in 1 week if you continue to have aches and pains after treatment. However, if you develop numbness in your vaginal or upper thigh region or have any dysfunction of your bowels or bladder you need to return to the ER. Coding Level of Care Code ED Sales Training Coordinator for Malathi Gutierrez
== END 2022-06-02 02:00 | disposition home or self-care (01) ==
PROVIDERS: Emergency Provider Physician Assistant; PCP Family Medicine
DX: M54.40 Lumbago with sciatica, unspecified side (principal); Z87.891 Personal history of nicotine dependence
CPT/HCPCS: 96372; 99284; J1885; J7512

== ENCOUNTER → 2022-12-10 16:10 | Outpatient (BNVA) | payer MEDICAID, SELFPAY | PROVIDERS: PCP Family Medicine; Visit Provider Nurse Practitioner Women's Health | DX: Z01.419 Encounter for gynecological examination (general) (routine) without abnormal findings (principal); R87.610 Atypical squamous cells of undetermined significance on cytologic smear of cervix (ASC-US); Z11.3 Encounter for screening for infections with a predominantly sexual mode of transmission; R10.2 Pelvic and perineal pain | CPT/HCPCS: 86592; 86803; 87340; 87491; 87591; 87806; 88175 ==

== ENCOUNTER 2023-01-06 07:43 | Emergency (ER) | payer MEDICAID, SELFPAY ==
--- NOTE | 2023-01-06 07:46 | ED_ITS ---
HPI - Headache General: Chief Complaint: Headache Stated Complaint: severe headache, nausea Time Seen by Provider: 01/06/23 07:45 Source: patient Mode of arrival: ambulatory History of Present Illness: 32 yo female presents emergency room complaining of waking with a headache this morning's been very nauseous. No vomiting. Headache was frontal initially no more left frontal. She has photophobia as well as the nausea. Has a history of MD elicited complaint: headache Onset (ago): hour(s) Onset description: on awakening Location: left and frontal Quality & Timing: throbbing Exacerbating factors: none Relieving factors: nothing Associated symptoms: Reports photophobia and sound sensitivity; Deny chest pain, confusion, cough, diaphoresis, eye pain, eye redness, fever(s), lightheadedness, loss of vision, malaise, nausea, neck stiffness, numbness, paresthesias, pre-syncope, rash, seizures, short of breath, syncope, vomiting or weakness Treatments prior to arrival: acetaminophen and ibuprofen Review of Systems Const: Denies: fever(s), chills, body aches, change in appetite, fatigue, malaise or diaphoresis Card: Denies: chest pain, edema, lightheadedness, syncope, pre-syncope, dyspnea on exertion or orthopnea Resp: Denies: dyspnea, productive cough or non-productive cough GI: Denies: abdominal pain, nausea, vomiting, hematemesis, coffee ground emesis, diarrhea, constipation, bloating, hematochezia or melena : Denies: flank pain, difficulty voiding, dysuria, urinary frequency or urinary urgency Skin/Breast: Denies: rash or pruritus Neuro: Denies: confusion PFSH ED PFSH: Medical History Asthma Diagnosed at the age of 9 controlled with as needed albuterol inhaler managed by her PMD. No pertinent past medical history Denies diabetes, hypertension, seizures, DVT/PE PCP: Dr. Israel PCOS (polycystic ovarian syndrome) resolved with her weight loss Surgical History H/O oral surgery History of cholecystectomy 2014--laparoscopic procedure Hx of section (05/24/14) Perfomed per Dr. Perez Hx of dilation and curettage (~2012) Family History Grandfather Diabetes Paternal and maternal Heart disease Maternal Grandmother Diabetes Paternal Hypertension Maternal Denies family history of Colon cancer Ovarian cancer Hypercholesteremia Breast cancer Uterine cancer Thyroid disease Stroke Physical Exam Const: GENERAL APPEARANCE: cooperative and comfortable ORIENTATION/CONSCIOUSNESS: Yes awake, Yes oriented to person, Yes oriented to place and Yes oriented to time HENMT: COMMON NORMALS: normocephalic, atraumatic and hearing grossly normal bilaterally HEAD & SCALP: normocephalic and atraumatic Eye: DIRECT OPHTHALMOSCOPY: Yes photophobia Resp: COMMON NORMALS: normal respiratory effort, No retractions, No use of ac cessory muscles and clear to auscultation bilaterally AUSCULTATION: clear to auscultation bilaterally Cardio: COMMON NORMALS: regular rate, regular rhythm and No murmurs present (Cardio) RATE: regular rate RHYTHM: regular rhythm GI: COMMON NORMALS: Soft to palpation and No hepatosplenomegaly present AUSCULTATION: Yes normoactive bowel sounds PALPATION: Yes Soft to palpation, No Tenderness to palpation present (GI), No Guarding due to palpation present ( GI) and Yes No hepatosplenomegaly present Extremity: COMMON NORMALS: normal to inspection, capillary refill normal, no clubbing, cyanosis or edema, no calf tenderness and no pedal edema Neuro: SENSORIUM/ORIENTATION: Yes oriented to person, Yes oriented to place and Yes oriented to time Skin: COMMON NORMALS: no rashes or lesions noted GENERAL SKIN EXAM: no rashes or lesions noted Course Vital Signs: Vital signs: Vital Signs Temperature 98.8 F 01/06/23 07:56 Pulse Rate 84 01/06/23 07:56 Respiratory Rate 16 01/06/23 07:56 Blood Pressure 157/94 01/06/23 07:56 Pulse Oximetry 99 01/06/23 07:56 Oxygen Delivery Me thod Room Air 01/06/23 07:56 MDM - Headache Medical Decision Making Improved with interventions. Discharge patient home use promethazine as needed for recurrent headaches along with acetaminophen or ibuprofen if persistent or recurring recommend following up with primary care to look at prophylactic medications for pain. Medical Records I reviewed the patient's medical records. Lab Data I reviewed the patient's lab results. 01/06/23 08:30 01/06/23 08:30 Laboratory Results WBC 8.6 10^3/uL (4.0-10.0) 01/06/23 08:30 RBC 4.35 10^6/uL (4.1-5.3) 01/06/23 08:30 Hgb 12.8 g/dL (11.5-15.3) 01/06/23 08:30 Hct 39.3 % (37.0-47.0) 01/06/23 08:30 MCV 90.3 fl (81-99) 01/06/23 08:30 MCH 29.4 pg (28.0-34.0) 01/06/23 08:30 MCHC 32.6 g/dL (30.0-36.0) 01/06/23 08:30 RDW 12.6 % (12.1-15.1) 01/06/23 08:30 Plt Count 182 10^3/cmm (130-400) 01/06/23 08: MPV 11.3 fL (7.4-10.4) H 01/06/23 08:30 Neut % (Auto) 67.8 % 01/06/23 08:30 Lymph % (Auto) 25.9 % 01/06/23 08:30 [place] % (Auto) 4.2 % 01/06/23 08:30 Eos % (Auto) 0.9 % 01/06/23 08:30 Baso % (Auto) 0.6 % 01/06/23 08:30 Neut # (Auto) 5.85 10^3/uL (1.8-7.7) 01/06/23 08:30 Lymph # (Auto) 2.2 10^3/uL (0.8-4.8) 01/06/23 08:30 [place] # (Auto) 0.4 10^3/uL (0.2-0.9) 01/06/23 08:30 Eos # (Auto) 0.1 10^3/uL (0.0-0.8) 01/06/23 08:30 Baso # (Auto) 0.1 10^3/uL (0.0-0.1) 01/06/23 08:30 Nucleated RBC % (auto) 0 % 01/06/23 08:30 Nucleated RBCs # 0.0 /100WBC 01/06/23 08:30 Sodium 140 mmol/L (136-145) 01/06/23 08:30 Potassium 3.7 mmol/L (3.5-5.1) 01/06/23 08:30 Chloride 105 mmol/L (98-107) 01/06/23 08:30 Carbon Dioxide 23 mmol/L (22-29) 01/06/23 08:30 Anion Gap 15.7 (5-19) 01/06/23 08:30 BUN 7 mg/dL (6-20) 01/06/23 08:30 Creatinine 0.7 mg/dL (0.5-0.9) 01/06/23 08:30 GFR Calculation 96.4 mL/min (90-130) 01/06/23 08:30 Glucose 111 mg/dL (65-115) 01/06/23 08:30 Calculated Osmolality 289 mOsm/kg (285-295) 01/06/23 08:30 Calcium 8.9 mg/dL (8.5-10.5) 01/06/23 08:30 Discharge Plan Discharge Patient Disposition: Home Clinical Impression: Migraine Condition: Stable Prescriptions: New promethazine 25 mg tablet 25 mg PO Q6H PRN (Reason: headache) Qty: 20 0RF diclofenac sodium 75 mg tablet,delayed release (DR/EC) 75 mg PO Q12H PRN (Reason: pain) Qty: 20 0RF Discontinued ibuprofen 200 mg Tablet 400 mg PO Q4H PRN (Reason: Pain) No Action multivitamin Tablet 1 tab PO DAILY fluticasone propion-salmeterol [Advair Diskus] 250-50 mcg/dose blister with device 1 inh inhalation BID albuterol sulfate [Ventolin HFA] 90 mcg/actuation HFA aerosol inhaler See Rx Instructions .ROUTE .COMPLEX Qty: 18 3RF Dose Instruction: INHALE 2 PUFFS BY MOUTH EVERY 4 HOURS DIRECTED Rx Instructions: INHALE 2 PUFFS BY MOUTH EVERY 4 HOURS DIRECTED acetaminophen 500 mg Tablet 1,000 mg PO Q4H PRN (Reason: Pain) Discharge Orders: Discharge ED (Routine); Ordered 01/06/23 Ordered By: Jg Pan Referrals: Kennedy Israel MD [Primary Care Provider] - Discharge Diet: Usual diet Discharge Activity: Increase activity as tolerated Patient Instructions: Opioid Safety, Pain Management Activity Restrictions/Additional Instructions: You were seen today for headache which responded well to the medications given in the emergency room. You can use promethazine or diclofenac as needed for recurrent headaches follow-up with your primary care doctor if headaches escalate for discussion of possible prophylactic medications for migraines Coding Level of Care Code ED Tightening Machine Operator for Malathi Gutierrez
[2023-01-06 07:53] VITALS: BMI 32.9
[2023-01-06 07:56] VITALS: BP 157/94; PULSE 84; RESP 16; TEMP 37.1; O2SAT 99
[2023-01-06] MEDS: sodium chloride 0.9% 1,000 ML 999 ML IV (08:50)
[2023-01-06] MEDS: promethazine 25 mg/mL SDV 1 mL IM (08:51)
[2023-01-06] MEDS: ketorolac 30 mg/mL INJ IVP (08:51)
[2023-01-06 08:54] LABS: Basophils # 0.1 10^3/uL (0.0-0.1); Basophils % 0.6 %; Eosinophils # 0.1 10^3/uL (0.0-0.8); Eosinophils % 0.9 %; Hematocrit 39.3 % (37.0-47.0); Hemoglobin 12.8 g/dL (11.5-15.3); Lymphocytes # 2.2 10^3/uL (0.8-4.8); Lymphocytes % 25.9 %; Mean Corpuscular HGB Conc 32.6 g/dL (30.0-36.0); Mean Corpuscular Hemoglobin 29.4 pg (28.0-34.0); Mean Corpuscular Volume 90.3 fl (81-99); Mean Platelet Volume 11.3 fL (7.4-10.4); Monocytes # 0.4 10^3/uL (0.2-0.9); Monocytes % 4.2 %; Neutrophils # 5.85 10^3/uL (1.8-7.7); Neutrophils % 67.8 %; Nucleated Red Blood Cells % 0 %; Platelet Count 182 10^3/cmm (130-400); Red Blood Count 4.35 10^6/uL (4.1-5.3); Red Cell Distribution Width 12.6 % (12.1-15.1); White Blood Count 8.6 10^3/uL (4.0-10.0)
[2023-01-06 09:08] LABS: Anion Gap 15.7 (5-19); Blood Urea Nitrogen 7 mg/dL (6-20); Calcium 8.9 mg/dL (8.5-10.5); Carbon Dioxide 23 mmol/L (22-29); Chloride 105 mmol/L (98-107); Glomerular Filtration Rate 96.4 mL/min (90-130); Glucose 111 mg/dL (65-115); Osmolality Calculated 289 mOsm/kg (285-295); Potassium 3.7 mmol/L (3.5-5.1); Sodium 140 mmol/L (136-145)
== END 2023-01-06 11:31 | disposition home or self-care (01) ==
PROVIDERS: Emergency Provider Family Medicine; PCP Family Medicine
DX: G43.909 Migraine, unspecified, not intractable, without status migrainosus (principal)
CPT/HCPCS: 80048; 85025; 96361; 96372; 96374; 99284; J1885; J2550; J7030